=== PATIENT | female | born 1960 | race Caucasian/White ===

== ENCOUNTER → 2017-06-06 | Outpatient (CLI) | payer BC ==
[~2017-06-06] MED LIST: EST5 PO; METH1TAB12 PO
== END | disposition home or self-care (01) ==
LOC: C.PAPS 08:31
PROVIDERS: ATTEND Obstetrics & Gynecology
DX: Z01.419 Encounter for gynecological examination (general) (routine) without abnormal findings (principal)

== ENCOUNTER 2019-01-29 08:52 | Inpatient (IN) ==
[2019-01-29] MEDS ORDERED: SODIUM CHLORIDE 0.9% 1000ML 1,000 ML IV ONE (09:37)
[2019-01-29] MEDS ORDERED: ACETAMINOPHEN 1,000 MG/100 ML VIAL IV STA (09:37)
[2019-01-29] MEDS ORDERED: ONDANSETRON INJ 2 MG/ML 2 ML VIAL IV STA (09:50)
[2019-01-29 10:10] LABS: Basophils # (auto) 0.03 K/uL (0-0.2); Basophils % (auto) 0.3 %; Eosinophils # (auto) 0.03 K/uL (0-0.5); Eosinophils % (auto) 0.3 %; Hematocrit (blood only) 37.5 % (37-47); Hemoglobin 12.9 g/dL (12.0-16.0); Immature Granulocytes # (auto) 0.01 K/uL (0.00-0.02); Immature Granulocytes % (auto) 0.1 %; Lymphocytes # (auto) 1.45 K/uL (1.2-3.4); Lymphocytes % (auto) 15.8 %; Mean Corpuscular Hgb Conc 34.4 g/dL (32-36); Mean Corpuscular Volume 86.2 fL (80-100); Mean Platelet Volume 9.3 fL (7.4-10.4); Monocytes # (auto) 0.91 K/uL (0.11-0.59); Monocytes % (auto) 9.9 %; Neutrophils # (auto) 6.76 K/uL (1.4-6.5); Neutrophils % (auto) 73.6 %; Platelet Count 189 K/uL (130-400); RDW Coefficient of Variation 12.7 % (11.5-14.5); RDW Standard Deviation 40.1 fL (36.4-46.3); Red Blood Count 4.35 M/uL (4.2-5.4); White Blood Count 9.19 K/uL (4.8-10.8)
[2019-01-29 10:16] LABS: Appearance Urine Clear (Clear); Bacteria Urine Automated Negative (Negative); Bilirubin Urine Negative (Negative); Blood Urine 3+ (Negative); Color Urine Dark Yellow; Epithelial Cell Urine Auto >30 /lpf (0-5); Glucose Urine UA Negative (Negative); Ketones Urine Trace (Negative); Leukocyte Esterase Urine 1+ (Negative); Nitrite Urine Negative (Negative); Protein Urine Negative (Negative); RBC Urine Automated >30 /hpf (0-4); Specific Gravity Urine 1.014 (1.000-1.030); Urobilinogen Urine Negative (Negative)
[2019-01-29 10:24] LABS: Albumin Level 3.7 gm/dl (3.4-5.0); BUN Creatinine Ratio 25.1 (10-20); Calcium 8.8 mg/dl (8.5-10.1); Creatinine Clr Calc Pharmacy 75.5 ml/min; Est GFR (African American) 104.5; Est GFR (Non-African American) 90.1
[2019-01-29 10:27] LABS: Bilirubin,Total 0.5 mg/dl (0.2-1); Globulin 3.8 gm/dl (2.5-4.0); Total Protein 7.5 gm/dl (6.4-8.2)
[2019-01-29] MEDS ORDERED: IOVERSOL 100ml IV PRN (10:50)
--- NOTE | 2019-01-29 11:07 | CT Scan Report ---
ABDOMEN AND PELVIS CT WITH IV CONTRAST CT DOSE: 451.61 mGy.cm HISTORY: left flank pain TECHNIQUE: Multiaxial CT images of the abdomen and pelvis were performed following the use of intrave nous contrast. A dose lowering technique was utilized adhering to the principles of ALARA. COMPARISON STUDY: None. FINDINGS: Small hiatus hernia. Mild dependent changes seen within the lung bases posteriorly. The hea rt is mildly enlarged. No pneumoperitoneum. No pneumatosis. There is a right hip prosthesis. The live r, gallbladder, pancreas, and spleen are unremarkable. Normal adrenal glands. No retroperitoneal lymp hadenopathy. Normal bladder. The uterus is surgically absent. No bowel wall thickening or obstruction . Colonic diverticulosis. No evidence for diverticulitis. Normal appendix. There is a 7 mm obstructin g stone within the left ureteropelvic junction resulting in mild left hydronephrosis. There are multi ple additional bilateral renal calculi, left greater than right. Focal scarring within calcification within the upper pole of the right kidney. There is also a few bilateral renal hypodense lesions. The se favor cysts. No right-sided hydronephrosis. IMPRESSION: 1. A 7 mm obstructing stone within the left ureteropelvic junction resulting in mild left hydronephro sis. 2. Bilateral nephrolithiasis. 3. Additional findings as described above. Electronically signed by: Freddy Gibson M.D. 01/29/2019 11:06 AM
[2019-01-29] MEDS ORDERED: cefTRIAXone SODIUM 1,000 MG/50 ML BAG IV STA (11:37)
--- NOTE | 2019-01-29 13:33 | History & Physical Report ---
Date of Service January 29, 2019 Assessment & Plan (1) Ureteral obstruction: Has a 7 mm obstructing stone within the left ureteropelvic junction resulting in mild left hydronephrosis. Weight bilateral nephrolithiasis. Neurology consulted Intravenous Toradol to control pain Likely to have a stent placement this afternoon Present on Admission?: Yes (2) Hydronephrosis: As above (3) UTI (urinary tract infection): Has had fever at home of 101 F Has been on Macrobid-we will stop Started on intravenous ceftriaxone Cultures have been sent Present on Admission?: Yes (4) Hypertension: Continue current medication (5) Hypokalemia: Likely secondary to medication induced Will give 2 K rides of potassium and IV fluid with potassium DVT prophylaxis SCDs Like to be discharged tomorrow The patient wants to be discharged before as she was to attend her daughter's marriage ceremony in [place]. History of Present Illness Chief Complaint: Left flank and groin pain for the last 7 days Primary Care Provider: Jorge Villanueva DO She is a 58-year-old female with significant past medical history of hypertension, hyperlipidemia and history of nephrolithiasis apparently has been complaining of left flank groin pain for the last 7 days. She was having more frequency of urination and associated with blood at one time. She went to the urgent care last Tuesday her urine was tested and as the pain was relieved she was sent home. Noted to have a UTI then been put on nitrofurantoin since yesterday. Has had fever of 101 at home associated with nausea but no vomiting. The pain remained intermittent but did not have any more dysuria. Hemodynamically stable in the emergency room with left flank, renal angle and left groin area tender to palpate. CT of the abdomen and pelvis showed a 7 mm stone in the left pale pediatric junction with mild hydronephrosis. She was started with intravenous ceftriaxone and admitted to medical floor and Urology was consulted. Likely go to OR this afternoon. Allergies Allergy/AdvReac Type Severity Reaction Status Date / Time No Known Allergies Allergy Unknown Verified 01/29/19 09:24 Home Medications Home Medications Medication Instructions Recorded Confirmed Type aspirin 81 mg PO QAM 01/29/19 01/29/19 History atorvastatin 20 mg PO 2XWK 01/29/19 01/29/19 History biotin 0 mg PO QAM 01/29/19 01/29/19 History estradiol 1 patch TOPICAL 2XWK 01/29/19 01/29/19 History ibuprofen 800 mg PO QAM 01/29/19 01/29/19 History losartan-hydrochlorothiazide 1 tab PO QAM 01/29/19 01/29/19 History xi-id-fklf-FA-Ca carb-vit K 1 tab PO QAM 01/29/19 01/29/19 History [Women's Multivitamin] nitrofurantoin monohyd/m-cryst 100 mg PO BID 01/29/19 01/29/19 History sertraline 25 mg PO HS 01/29/19 01/29/19 History testosterone 1 pump INTRANASAL TID 01/29/19 01/29/19 History Past Med/Surg History Medical History H/O: hysterectomy Hip arthritis Hypertension Hypolipidemia Surgical History H/O section Family History Other Kidney stone Social History Preferred Language: Wolof Communication Ability: Effective Beliefs That Will Affect Care: None Current Living Situation: Significant Other current occupational status: employed Other Information That Helps Us Care for You: No Feels Safe at Home: Yes Safety Concerns: Feels Safe At This Time Smoking Status: Never smoker Hx Alcohol Use: Yes Hx Substance Use: No Review of Systems All systems reviewed & are unremarkable except as noted in HPI & below Physical Exam Vital Signs (Past 24 Hours): Last Vital Signs Temp 36.8 C 01/29/19 08:57 Pulse 68 01/29/19 12:30 Resp 15 01/29/19 12:30 BP 108/65 01/29/19 12:30 Pulse Ox 94 01/29/19 12:30 Physical Exam: Lying in bed comfortably Constitutional: WD/WN, vitals as above Eyes: PERRL, conjunctivae normal, anicteric sclerae ENMT: external ear and nose normal, oropharynx normal Neck: trachea midline, no thyromegaly Respiratory: normal respiratory effort, lungs clear to auscultation Cardiovascular: Rate/Rhythm: regular rate and regular rhythm Heart Sounds: normal S1 and normal S2 Gastrointestinal (Abdomen): Inspection/Auscultation: abdomen normal to inspection and normal bowel sounds Percussion/Palpation: + abdomen tender (Left renal angle and left groin) Musculoskeletal: No acute arthritis in any joints Neurologic: PERRL, EOMI, accommodation nl, no face palsy, no dysarthria Results & Data Laboratory Results Short CBC 01/29/19 Range/Units 09:52 WBC 9.19 (4.8-10.8) K/uL Hgb 12.9 (12.0-16.0) g/dL Hct 37.5 (37-47) % Plt Count 189 (130-400) K/uL BMP 01/29/19 09:52 Sodium 139 Potassium 3.0 L Chloride 102 Carbon Dioxide 31 BUN 18 Creatinine 0.73 Glucose 114 H Calcium 8.8 Liver Function 01/29/19 Range/Units 09:52 Total Bilirubin 0.5 (0.2-1) mg/dl AST 13 L (15-37) U/L ALT 25 (12-78) U/L Alkaline Phosphatase 73 (45-117) U/L Albumin 3.7 (3.4-5.0) gm/dl Urine 01/29/19 Range/Units 09:17 Urine Color Dark Yellow Urine Appearance Clear (Clear) Urine pH 6.0 (4.5-7.5) Ur Specific [place] 1.014 (1.000-1.030) Urine Protein Negative (Negative) Urine Glucose (UA) Negative (Negative) Diagnostic Findings CT of the Abdomen and Pelvis:1. A 7 mm obstructing stone within the left ureteropelvic junction resulting in mild left hydronephrosis. 2. Bilateral nephrolithiasis. 3. Additional findings as described above. Medications Administered Current Inpatient Medications Potassium Acetate 10 meq/ (Sodium Chloride) 105 mls @ 105 mls/hr IV Q1H LIMA Stop: 01/29/19 15:29 Ceftriaxone Sodium 1,000 mg/ (Dextrose) 50 mls @ 100 mls/hr IV Q24H LIMA; Protocol Stop: 02/08/19 13:29 Ioversol (Optiray 320 100ml) 94 ml IV ONCE PRN PRN Reason: Interaction Checking Stop: 02/02/19 10:49 Last Admin: 01/29/19 10:51 Dose: 94 ml Documented by:
--- NOTE | 2019-01-29 14:54 | Urology Consultation ---
Date of Consultation January 29, 2019 Assessment & Plan (1) Hypolipidemia: (2) Hypertension: (3) Ureterolithiasis: obstructing large left upper ureteral stone 13mm plan cstent today as she has recent + urine culture and fever last night stone removal surgery will be in 2-3 weeks once infection has been treated. will need to look for culture results from urgent care. I described cysto left stent and she signed consent to OR today at 4pm Present on Admission?: Yes (4) Ureteral obstruction: (5) UTI (urinary tract infection): History of Present Illness Reason for Consultation: I am asked by to evaluate and treat patient for left ureteral stone. She also has a febrile UTI. She had utis symptoms starting Tuesday and went to urgent care over the weekend. She has left flank pain with nausea and fevered to 102 last night with rigors. She took macrobid from the urgent care starting Tuesday01/28/19 and she is afebrile today. She last had yogurt and water at 8am,. Requesting Physician: Dr Barrientos Attending Physician: Lisandro Barrientos MD History of Present Illness I am asked by to evaluate and treat patient for left ureteral stone. She also has a febrile UTI. She had utis symptoms starting Tuesday and went to urgent care over the weekend. She has left flank pain with nausea and fevered to 102 last night with rigors. She took macrobid from the urgent care starting Tuesday01/28/19 and she is afebrile today. She last had yogurt and water at 8am, Allergies Allergy/AdvReac Type Severity Reaction Status Date / Time No Known Allergies Allergy Unknown Verified 01/29/19 09:24 Home Medications Home Medications Medication Instructions Recorded Confirmed Type aspirin 81 mg PO QAM 01/29/19 01/29/19 History atorvastatin 20 mg PO 2XWK 01/29/19 01/29/19 History biotin 0 mg PO QAM 01/29/19 01/29/19 History estradiol 1 patch TOPICAL 2XWK 01/29/19 01/29/19 History ibuprofen 800 mg PO QAM 01/29/19 01/29/19 History losartan-hydrochlorothiazide 1 tab PO QAM 01/29/19 01/29/19 History mb-kt-qtss-FA-Ca carb-vit K 1 tab PO QAM 01/29/19 01/29/19 History [Women's Multivitamin] nitrofurantoin monohyd/m-cryst 100 mg PO BID 01/29/19 01/29/19 History sertraline 25 mg PO HS 01/29/19 01/29/19 History testosterone 1 pump INTRANASAL TID 01/29/19 01/29/19 History Patient History Medical History H/O: hysterectomy Hip arthritis Hypertension Hypolipidemia Surgical History H/O section Family History Other Kidney stone Social History Preferred Language: Maori Communication Ability: Effective Beliefs That Will Affect Care: None Current Living Situation: Significant Other current occupational status: employed Other Information That Helps Us Care for You: No Feels Safe at Home: Yes Safety Concerns: Feels Safe At This Time Smoking Status: Never smoker Hx Alcohol Use: Yes Hx Substance Use: No Review of Systems Fam Hx- brother and father have had kidney stones Soc- retired, has adult nehemiah august, no tobacco, social alcohol ROS- no chest pain no shortness of breath, + fever chills and rigors last night, + nausea, no emesis today, bowels normal, no rash, no seizures, no numbness or weakness, + frequency of urination, + dysuria Physical Exam Vital Signs (Past 24 Hours): Last Vital Signs Temp 36.8 C 01/29/19 08:57 Pulse 68 01/29/19 14:00 Resp 14 01/29/19 14:00 BP 110/66 01/29/19 14:00 Pulse Ox 94 01/29/19 14:00 Constitutional: WD/WN, vitals as above + well hydrated, + thin and healthy appearing; no acute distress Respiratory: normal respiratory effort, lungs clear to auscultation Cardiovascular: RRR, no murmur, no edema Gastrointestinal (Abdomen): normal bowel sounds, soft, nontender, no hepatosplenomegaly Skin: no rashes, warm and dry Psychiatric: A+Ox3, euthymic affect
[2019-01-29] MEDS: POTASSIUM CHLORIDE / WTR 10 MEQ/100 ML PLCT IV SCH ×2 (16:06→18:56)
[2019-01-29] MEDS ORDERED: fentaNYL citrate 100 MCG/2 ML VIAL IV PRN (16:19)
[2019-01-29] MEDS ORDERED: ATROPINE SULFATE 0.1 MG/ML 10ML SYR IV PRN (16:19)
[2019-01-29] MEDS ORDERED: ONDANSETRON INJ 2 MG/ML 2 ML VIAL IV PRN (16:19)
[2019-01-29] MEDS ORDERED: ePHEDrine sulfate 50 MG/ML AMP IV PRN (16:19)
[2019-01-29] MEDS ORDERED: MIDAZOLAM HCL 1 MG/ML 2ML VIAL ONE (16:25)
[2019-01-29] MEDS ORDERED: fentaNYL citrate 100 MCG/2 ML VIAL ONE (16:25)
[2019-01-29] MEDS ORDERED: LIDOCAINE HCL 2% 2 ML VIAL/AMP(20MG/ML) INFIL ONE (16:25)
[2019-01-29] MEDS ORDERED: ONDANSETRON INJ 2 MG/ML 2 ML VIAL ONE (16:25)
[2019-01-29] MEDS ORDERED: PROPOFOL IV EMULSION 10 MG/ML 20 ML VIAL IV ONE (16:25)
--- NOTE | 2019-01-29 16:26 | Anesthesiology Consultation ---
Date of Service January 29, 2019 HTN Obstructing Stone Hypokalemia Assessment & Plan (1) Encounter for pre-operative examination: Chart Review Chart Review: Acceptable Risk for Surgery and Patient NOT seen in Pre Admission Testing Consults Requested none ASA ASA2 Proposed Anesthesia Anesthesia Type: MAC Risk / Benefits Reviewed With: PT / POA / Parent / Guardian, Accepts Plan and Informed Consent Obtained NPO Date Last Intake of Fluids: 01/29/19 Time Last Intake of Fluids: 07:30 Date Last Intake of Solids: 01/29/19 Time Last Intake of Solids: 07:30 Last Intake of Solids Comment: had yogert;toast and water History Surgery Operation Date: 01/29/19 17:45 Proposed Procedures p Cystoscopy, Left Stent Placement - Harika Espinosa MD Height/Weight Height: 5 ft 1 in Weight: 72.3 kg Allergies Allergy/AdvReac Type Severity Reaction Status Date / Time No Known Allergies Allergy Unknown Verified 01/29/19 09:24 Medications Home Medications Medication Instructions Recorded Confirmed Last Taken aspirin 81 mg PO QAM 01/29/19 01/29/19 01/29/19 atorvastatin 20 mg PO 2XWK 01/29/19 01/29/19 01/26/19 biotin 0 mg PO QAM 01/29/19 01/29/19 01/29/19 estradiol 1 patch TOPICAL 2XWK 01/29/19 01/29/19 01/25/19 ibuprofen 800 mg PO QAM 01/29/19 01/29/19 01/29/19 losartan-hydrochlorothiazide 1 tab PO QAM 01/29/19 01/29/19 01/29/19 kt-uf-amnf-FA-Ca carb-vit K 1 tab PO QAM 01/29/19 01/29/19 01/29/19 [Women's Multivitamin] nitrofurantoin monohyd/m-cryst 100 mg PO BID 01/29/19 01/29/19 01/29/19 sertraline 25 mg PO HS 01/29/19 01/29/19 01/28/19 testosterone 1 pump INTRANASAL TID 01/29/19 01/29/19 01/28/19 Active Medications Generic Name Dose Route Start Last Admin Trade Name Freq PRN Reason Stop Dose Admin Potassium Chloride 10 meq in 100 mls @ 100 mls/hr 01/29/19 15:00 01/29/19 16:06 K Vick / Wtr IV 01/29/19 16:59 100 mls/hr Q1H LIMA Administration Ioversol 94 ml 01/29/19 10:50 01/29/19 10:51 Optiray 320 100ml IV 02/02/19 10:49 94 ml ONCE PRN Administration Interaction Checking Past Medical History Medical History H/O: hysterectomy Hip arthritis Hypertension Hypolipidemia Past Family History Family History Other Kidney stone Past Surgical History Surgical History H/O section Social History Smoking Status: Never smoker Hx Alcohol Use: Yes Alcohol type: wine alcohol intake frequency: other Alcohol Intake Frequency Comment: weekends. 2 glasses of wine Hx Substance Use: No Physical Exam Vital Signs Last Vital Signs Temp 36.7 C 01/29/19 15:29 Pulse 67 01/29/19 15:29 Resp 20 01/29/19 15:29 BP 114/71 01/29/19 15:29 Pulse Ox 95 01/29/19 15:29 ENMT Mouth: no TMJ abnormality Thyromental Distance: > or= 3.5 Finger Breadths Mallampati Class: II Neck normal visual inspection Respiratory normal respiratory effort Cardiovascular Rate/Rhythm: regular rate and regular rhythm Neurologic moves all extremities Psychiatric Orientation: alert Testing Laboratory Results 01/29/19 09:52 01/29/19 09:52 Urine Color Dark Yellow 01/29/19 09:17 Urine Appearance Clear (Clear) 01/29/19 09:17 Urine pH 6.0 (4.5-7.5) 01/29/19 09:17 Ur Specific [place] 1.014 (1.000-1.030) 01/29/19 09:17 Urine Protein Negative (Negative) 01/29/19 09:17 Urine Glucose (UA) Negative (Negative) 01/29/19 09:17 Urine Ketones Trace (Negative) H 01/29/19 09:17 Urine Nitrite Negative (Negative) 01/29/19 09:17 Ur Leukocyte Esterase 1+ (Negative) H 01/29/19 09:17 Urine WBC (Auto) 10-30 /hpf (0-5) H 01/29/19 09:17 Urine RBC (Auto) >30 /hpf (0-4) H 01/29/19 09:17 U Hyaline Cast (Auto) 5-10 /lpf (0-5) H 01/29/19 09:17 U Epithel Cells (Auto) >30 /lpf (0-5) H 01/29/19 09:17 Urine Bacteria (Auto) Negative (Negative) 01/29/19 09:17
[2019-01-29] MEDS ORDERED: KETAMINE HCL INJ 50 MG/ML 10 ML VIAL ONE (16:46)
[2019-01-29] MEDS ORDERED: SODIUM CHLORIDE 0.9% INJ 10 ML VIAL ONE (16:56)
--- NOTE | 2019-01-29 17:01 | Operative Report ---
Post Operative Report Pre & Post Diagnosis Operation Date: 01/29/19 17:45 Pre-Op Diagnosis: Left Upper Ureteral Stone Post-Op Diagnosis: Left Upper Ureteral Stone Procedure Operation Date: 01/29/19 17:45 Actual Procedures p Cystoscopy, Left Ureteral Stent Placement(Not Applicable) - Harika Espinosa MD Surgeon Harika Espinsoa MD Ship Painter Helper none Estimated Blood Loss 0 Findings Consistent with Post-Op Diagnosis radio-opaque upper ureteral and renal stones Fluids 200mL Specimens none Drains 6 fr 24 centimeter double J stent Anesthesia Type MAC Complications none Disposition Accompanied Patient To Recovery: Yes Disposition: Recovery Room Indications UTI and obstructing 13mm left upper ureteral stone Description of Procedure Patient was sedated and placed in lithotomy position. Her genitals were prepped and draped in sterile fashion. Time out held with team. I placed a 21 fr rigid cystoscope to bladder. The urethra is unremarkable. There is very mild cystitis cystica changes. The UOs are nomral location slit shape. I placed a Bentson wire up left ureter and placed a 24 centimeter 6 Fr double J stent easily. There is brisk efflux after placement. I left bladder empty and concluded case. She transferred to recovery under my escort, in stable condition. Plan: To floor for observation Pyridium for dysuria prn flomax daily if needed for stent discomfort oral pain meds as needed antibiotics bassed on prior urine culture ASA 3 clean contaminated case 2 seconds fluoro ceftriaxone antibiotic noon in ER I attest to the content of the Intraoperative Record and any orders documented therein. Any exceptions are noted below.
[2019-01-29] MEDS ORDERED: POTASSIUM CHLORIDE PWD 20 MEQ PACK PO ONE (17:06)
--- NOTE | 2019-01-29 17:23 | Fluoroscopy Report ---
FL KUB CLINICAL HISTORY: LEFT CYSTO, STENT COMPARISON STUDY: None FLUOROSCOPY TIME: 3 seconds. NUMBER OF FLUOROSCOPIC IMAGES: 1 FINDINGS: A single fluoroscopic spot image from a retrograde study is provided for interpretation. Th is demonstrates the proximal portion of a left-sided nephroureteral stent. There are suspected left r enal calculi. IMPRESSION: The proximal portion of the left-sided nephroureteral stent is visualized Electronically signed by: Papi Oden M.D. 01/29/2019 5:22 PM
--- NOTE | 2019-01-29 17:37 | Anesthesiology Progress Note ---
Date of Service January 29, 2019 Anesthesia Post Procedure Vital Signs Vital Signs: Temp Pulse Pulse Pulse Resp BP BP 01/29/19 17:34 37.1 C 01/29/19 17:26 62 15 112/62 01/29/19 17:25 73 19 01/29/19 17:20 70 19 109/66 01/29/19 17:16 37.1 C 68 74 20 104/63 104/63 01/29/19 17:15 69 18 01/29/19 17:11 68 18 105/59 L 01/29/19 17:10 71 17 01/29/19 17:05 71 21 93/58 L 01/29/19 17:01 79 15 87/55 L 01/29/19 17:00 36.4 C L 75 16 87/55 L 01/29/19 15:50 37.2 C 64 18 119/67 01/29/19 15:29 36.7 C 67 20 114/71 01/29/19 14:35 01/29/19 14:25 01/29/19 14:20 01/29/19 14:15 01/29/19 14:10 01/29/19 14:05 01/29/19 14:01 01/29/19 14:00 68 14 104/68 110/66 01/29/19 13:55 01/29/19 13:50 01/29/19 13:47 110/66 01/29/19 13:46 01/29/19 12:55 66 13 01/29/19 12:50 71 18 01/29/19 12:45 65 17 01/29/19 12:40 72 10 L 01/29/19 12:35 70 14 01/29/19 12:30 68 15 108/65 01/29/19 12:01 74 15 100/65 01/29/19 12:00 68 14 01/29/19 11:56 70 15 01/29/19 11:55 73 17 97/62 L 01/29/19 11:30 68 16 01/29/19 11:00 75 15 01/29/19 10:59 72 16 117/67 01/29/19 10:57 78 17 117/67 01/29/19 10:30 66 16 01/29/19 10:12 77 16 114/71 01/29/19 10:11 78 19 01/29/19 10:08 79 15 114/61 01/29/19 08:57 36.8 C 96 H 16 104/68 Pulse Ox 01/29/19 17:34 01/29/19 17:26 98 01/29/19 17:25 100 01/29/19 17:20 99 01/29/19 17:16 99 01/29/19 17:15 98 01/29/19 17:11 100 01/29/19 17:10 100 01/29/19 17:05 99 01/29/19 17:01 96 01/29/19 17:00 96 01/29/19 15:50 96 01/29/19 15:29 95 01/29/19 14:35 95 01/29/19 14:25 95 01/29/19 14:20 94 01/29/19 14:15 95 01/29/19 14:10 98 01/29/19 14:05 94 01/29/19 14:01 93 01/29/19 14:00 94 01/29/19 13:55 96 01/29/19 13:50 94 01/29/19 13:47 93 01/29/19 13:46 94 01/29/19 12:55 96 01/29/19 12:50 92 01/29/19 12:45 96 01/29/19 12:40 95 01/29/19 12:35 96 01/29/19 12:30 94 01/29/19 12:01 95 01/29/19 12:00 93 01/29/19 11:56 91 01/29/19 11:55 92 01/29/19 11:30 90 01/29/19 11:00 92 01/29/19 10:59 96 01/29/19 10:57 95 01/29/19 10:30 01/29/19 10:12 92 01/29/19 10:11 01/29/19 10:08 01/29/19 08:57 97 Pain Intensity Left Flank: Pain Intensity: 0 Notes Mental Status: alert / awake / arousable Patient Amnestic to Procedure: Yes Nausea / Vomiting: adequately controlled Pain: adequately controlled Airway Patency, RR, SpO2: stable & adequate BP & HR: stable & adequate Hydration State: stable & adequate Anesthetic Complications: no major complications apparent
--- NOTE | 2019-01-29 19:42 | Emergency Department Note ---
Entered by Lissa Valladares acting as a scribe for History of Present Illness General Chief complaint: Flank Pain Stated complaint: flank pain, high fever, passed blood, lower back Time Seen by Provider: 01/29/19 09:36 Source: patient Mode of arrival: ambulatory Limitations: no limitations History of Present Illness Onset (ago): day(s) 4 Location: abdomen (left sided flank pain) and genitals Severity: severe Pain Consistency: + intermittent Maximum Pain Intensity: 3 Current Pain Intensity: 3 Quality: + other Associated symptoms: + fever/chills, + nausea/vomiting (The patient complains of nausea. ) and + other (The patient complains of lower back pain, fatigue, groin pain, hematuria. ) The patient is a 58 year old female with a history of hip arthritis, C-sections, and a hysterectomy who presents to the ED with complaints of intermittent severe left sided flank pain that onset 4 days ago. She states that her pain is currently a 3/10 in severity. She notes that 4 days ago, she experienced a large amount of hematuria and then felt better. She states she went to urgent care and they told her that she "probably passed a stone." The patient notes that she received a call that there were bacteria in her urine and was prescribed an antibiotic. The patent states that her symptoms returned last night with a fever and severe flank pain. She notes that she feels better this morning but still has groin pain. The patient complains of fever, lower back pain, fatigue, nausea, groin pain, and hematuria. She notes that she has a family history of kidney stones. Home Medications Home Medications Medication Instructions Recorded Confirmed Type aspirin 81 mg PO QAM 01/29/19 01/29/19 History atorvastatin 20 mg PO 2XWK 01/29/19 01/29/19 History biotin 0 mg PO QAM 01/29/19 01/29/19 History estradiol 1 patch TOPICAL 2XWK 01/29/19 01/29/19 History ibuprofen 800 mg PO QAM 01/29/19 01/29/19 History losartan-hydrochlorothiazide 1 tab PO QAM 01/29/19 01/29/19 History gq-kt-gpnt-FA-Ca carb-vit K 1 tab PO QAM 01/29/19 01/29/19 History [Women's Multivitamin] nitrofurantoin monohyd/m-cryst 100 mg PO BID 01/29/19 01/29/19 History sertraline 25 mg PO HS 01/29/19 01/29/19 History testosterone 1 pump INTRANASAL TID 01/29/19 01/29/19 History Allergies Allergy/AdvReac Type Severity Reaction Status Date / Time No Known Allergies Allergy Unknown Verified 01/29/19 09:24 Past Med/Surg History Medical History H/O: hysterectomy Hip arthritis Hypertension Hypolipidemia Surgical History H/O section Family History Other Kidney stone Social History Preferred Language: Bahamian Communication Ability: Effective Beliefs That Will Affect Care: None Current Living Situation: Significant Other current occupational status: employed Other Information That Helps Us Care for You: No Feels Safe at Home: Yes Safety Concerns: Feels Safe At This Time Smoking Status: Never smoker Hx Alcohol Use: Yes Hx Substance Use: No Review of Systems See HPI for pertinent positives & negatives. and A total of 10 systems reviewed and were otherwise negative Physical Exam Vital Signs Vital Signs - 24 hr 01/29/19 15:29 01/29/19 15:50 01/29/19 17:00 Temperature 36.7 C 37.2 C 36.4 C L Temperature Source Oral Oral Temporal Artery Scan Pulse Rate Pulse Rate [Apical] 75 Pulse Rate [Left Finger] Pulse Rate [Right Finger] 67 64 Pulse Rate from SpO2 Sensor 76 Pulse Rhythm [Apical] Regular Pulse Rhythm [Right Finger] Regular Regular Pulse Strength [Apical] Pulse Strength [Right Finger] Normal Normal Respiratory Rate 20 18 16 Respiratory Effort / Characteristics Non-Labored Spontaneous Non-Labored Non-Labored Spontaneous Respiratory Depth Normal Normal Normal Respiratory Pattern Regular Regular Regular Blood Pressure Blood Pressure [Left Arm] 114/71 119/67 87/55 L Blood Pressure Mean Blood Pressure Mean [Left Arm] 85 84 65 Blood Pressure Position [Left Arm] Lying Lying Lying Pulse Oximetry 95 96 96 Oxygen Delivery Method Room Air Room Air Oxymask Oxygen Flow Rate 10 01/29/19 17:01 01/29/19 17:05 01/29/19 17:10 Temperature Temperature Source Pulse Rate 79 71 71 Pulse Rate [Apical] Pulse Rate [Left Finger] Pulse Rate [Right Finger] Pulse Rate from SpO2 Sensor 77 71 73 Pulse Rhythm [Apical] Pulse Rhythm [Right Finger] Pulse Strength [Apical] Pulse Strength [Right Finger] Respiratory Rate 15 21 17 Respiratory Effort / Characteristics Respiratory Depth Respiratory Pattern Blood Pressure 87/55 L 93/58 L Blood Pressure [Left Arm] Blood Pressure Mean 65 69 Blood Pressure Mean [Left Arm] Blood Pressure Position [Left Arm] Pulse Oximetry 96 99 100 Oxygen Delivery Method Oxygen Flow Rate 01/29/19 17:11 01/29/19 17:15 01/29/19 17:16 Temperature 37.1 C Temperature Source Temporal Artery Scan Pulse Rate 68 69 68 Pulse Rate [Apical] 74 Pulse Rate [Left Finger] Pulse Rate [Right Finger] Pulse Rate from SpO2 Sensor 68 69 68 Pulse Rhythm [Apical] Regular Pulse Rhythm [Right Finger] Pulse Strength [Apical] Normal Pulse Strength [Right Finger] Respiratory Rate 18 18 20 Respiratory Effort / Characteristics Non-Labored Spontaneous Respiratory Depth Normal Respiratory Pattern Regular Blood Pressure 105/59 L 104/63 Blood Pressure [Left Arm] 104/63 Blood Pressure Mean 74 76 Blood Pressure Mean [Left Arm] 76 Blood Pressure Position [Left Arm] Lying Pulse Oximetry 100 98 99 Oxygen Delivery Method Nasal Cannula Oxygen Flow Rate 2 01/29/19 17:20 01/29/19 17:25 01/29/19 17:26 Temperature Temperature Source Pulse Rate 70 73 62 Pulse Rate [Apical] Pulse Rate [Left Finger] Pulse Rate [Right Finger] Pulse Rate from SpO2 Sensor 71 73 63 Pulse Rhythm [Apical] Pulse Rhythm [Right Finger] Pulse Strength [Apical] Pulse Strength [Right Finger] Respiratory Rate 19 19 15 Respiratory Effort / Characteristics Respiratory Depth Respiratory Pattern Blood Pressure 109/66 112/62 Blood Pressure [Left Arm] Blood Pressure Mean 80 78 Blood Pressure Mean [Left Arm] Blood Pressure Position [Left Arm] Pulse Oximetry 99 100 98 Oxygen Delivery Method Oxygen Flow Rate 01/29/19 17:34 01/29/19 17:50 01/29/19 18:20 Temperature 37.1 C 36.9 C 36.8 C Temperature Source Temporal Artery Scan Oral Oral Pulse Rate Pulse Rate [Apical] Pulse Rate [Left Finger] Pulse Rate [Right Finger] 67 73 Pulse Rate from SpO2 Sensor Pulse Rhythm [Apical] Pulse Rhythm [Right Finger] Regular Pulse Strength [Apical] Pulse Strength [Right Finger] Normal Respiratory Rate 16 17 Respiratory Effort / Characteristics Non-Labored Respiratory Depth Normal Normal Respiratory Pattern Regular Blood Pressure Blood Pressure [Left Arm] 119/71 128/82 Blood Pressure Mean Blood Pressure Mean [Left Arm] 87 97 Blood Pressure Position [Left Arm] Lying Lying Pulse Oximetry 97 94 Oxygen Delivery Method Nasal Cannula Room Air Oxygen Flow Rate 01/29/19 19:06 01/29/19 19:50 01/29/19 21:02 Temperature 36.8 C 36.8 C 37.1 C Temperature Source Oral Oral Oral Pulse Rate Pulse Rate [Apical] Pulse Rate [Left Finger] Pulse Rate [Right Finger] 88 88 76 Pulse Rate from SpO2 Sensor Pulse Rhythm [Apical] Pulse Rhythm [Right Finger] Regular Regular Regular Pulse Strength [Apical] Pulse Strength [Right Finger] Normal Normal Normal Respiratory Rate 18 18 16 Respiratory Effort / Characteristics Non-Labored Spontaneous Non-Labored Spontaneous Non-Labored Spontaneous Respiratory Depth Normal Normal Normal Respiratory Pattern Regular Regular Regular Blood Pressure Blood Pressure [Left Arm] 115/61 115/61 101/66 Blood Pressure Mean Blood Pressure Mean [Left Arm] 79 79 77 Blood Pressure Position [Left Arm] Lying Lying Lying Pulse Oximetry 94 94 94 Oxygen Delivery Method Room Air Room Air Room Air Oxygen Flow Rate 01/29/19 23:07 01/30/19 03:43 01/30/19 06:59 Temperature 37.0 C 37.0 C 36.4 C L Temperature Source Oral Oral Oral Pulse Rate Pulse Rate [Apical] Pulse Rate [Left Finger] 65 61 67 Pulse Rate [Right Finger] Pulse Rate from SpO2 Sensor Pulse Rhythm [Apical] Pulse Rhythm [Right Finger] Pulse Strength [Apical] Pulse Strength [Right Finger] Respiratory Rate 14 14 19 Respiratory Effort / Characteristics Respiratory Depth Respiratory Pattern Blood Pressure Blood Pressure [Left Arm] 94/59 L 144/93 H 102/65 Blood Pressure Mean Blood Pressure Mean [Left Arm] 70 110 77 Blood Pressure Position [Left Arm] Lying Lying Lying Pulse Oximetry 93 97 93 Oxygen Delivery Method Room Air Room Air Room Air Oxygen Flow Rate GENERAL: Awake, alert, well-appearing, in no distress HENT: Normocephalic, atraumatic. Oropharynx with dry mucous membranes and otherwise unremarkable. EYES: Normal conjunctiva. Sclera non-icteric. NECK: Supple. No nuchal rigidity. FROM. No JVD. RESPIRATORY: Clear to auscultation. CARDIAC: Regular rate, normal rhythm. Extremities warm and well perfused. Pulses equal. ABDOMEN: Soft, non-distended. No tenderness to palpation. No rebound or gu arding. No masses. RECTAL: Deferred. MUSCULOSKELETAL: Chest examination reveals no tenderness. The back is symmetrical on inspection without obvious abnormality. There is no CVA tenderness to palpation. No joint edema. LOWER EXTREMITIES: Calves are equal size bilaterally and non-tender. No edema. No discoloration. NEURO: Normal sensorium. No sensory or motor deficits noted. SKIN: No rash or jaundice noted. Course 0945: Past medical records reviewed. The patient was evaluated in room C12B, and a complete history and physical examination were performed. 1248: I reviewed the patient's case with Dr. Parth Hickman. He will evaluate the patient for further management. 1258: I reviewed the patient's case with Dr. Chawla Urologyenifer. She is aware of the patient. Consultations Consultation #1: [id number]: I reviewed the patient's case with Dr. Parth Hickman. He will evaluate the patient for further management. Time: 12:48 Consultation #2: [id number]: I reviewed the patient's case with Dr. Cammy Puga. She is aware of the patient. Time: 12:58 Administered Medications Ceftriaxone Sodium 1,000 mg/ (Dextrose) 50 mls @ 100 mls/hr IV Q24H LIMA; Protocol Stop: 02/08/19 11:59 Last Infusion: 01/30/19 12:23 Dose: 0 mls/hr Documented by: [id number] Admin: 01/30/19 11:51 Dose: 100 mls/hr Documented by: [id number] Ketorolac Tromethamine (Toradol) 15 mg IV Q6H PRN PRN Reason: Pain Stop: 02/03/19 13:44 Last Admin: 01/30/19 03:56 Dose: 15 mg Documented by: [id number] Admin: 01/29/19 20:16 Dose: 15 mg Documented by: [id number] Potassium Chloride (Klor-Con Pwd) 20 meq PO BID LIMA Stop: 02/28/19 20:59 Last Admin: 01/30/19 08:42 Dose: 20 meq Documented by: [id number] Admin: 01/29/19 20:19 Dose: 20 meq Documented by: [id number] Discontinued Medications Hydromorphone HCl (Dilaudid) 0.5 mg IV NOW STA Stop: 01/30/19 06:29 Last Admin: 01/30/19 06:34 Dose: 0.5 mg Documented by: [id number] Acetaminophen (Ofirmev) 1,000 mg in 100 mls @ 400 mls/hr IV NOW STA Stop: 01/29/19 09:51 Last Infusion: 01/29/19 10:20 Dose: 0 mls/hr Documented by: [id number] Admin: 01/29/19 10:05 Dose: 400 mls/hr Documented by: [id number] Sodium Chloride (Nss 1000ml) 1,000 mls @ 999 mls/hr IV .Q1H1M ONE Stop: 01/29/19 10:37 Last Infusion: 01/29/19 11:27 Dose: 0 mls/hr Documented by: [id number] Admin: 01/29/19 10:05 Dose: 999 mls/hr Documented by: [id number] Ceftriaxone Sodium (Rocephin) 1,000 mg in 50 mls @ 100 mls/hr IV NOW STA Stop: 01/29/19 12:06 Last Infusion: 01/29/19 12:37 Dose: 0 mls/hr Documented by: [id number] Admin: 01/29/19 12:04 Dose: 100 mls/hr Documented by: [id number] Potassium Chloride (K Vick / Wtr) 10 meq in 100 mls @ 100 mls/hr IV Q1H LIMA Stop: 01/29/19 16:59 Last Infusion: 01/29/19 20:19 Dose: 0 mls/hr Documented by: [id number] Admin: 01/29/19 18:56 Dose: 100 mls/hr Documented by: [id number] Infusion: 01/29/19 17:06 Dose: 100 mls/hr Documented by: [id number] Admin: 01/29/19 16:06 Dose: 100 mls/hr Documented by: [id number] Ioversol (Optiray 320 100ml) 94 ml IV ONCE PRN PRN Reason: Interaction Checking Stop: 02/02/19 10:49 Last Admin: 01/29/19 10:51 Dose: 94 ml Documented by: [id number] Ondansetron HCl (Zofran) 4 mg IV NOW STA Stop: 01/29/19 09:51 Last Admin: 01/29/19 10:05 Dose: 4 mg Documented by: [id number] Potassium Chloride (Klor-Con Pwd) 20 meq PO NOW ONE Stop: 01/29/19 17:07 Last Admin: 01/29/19 18:57 Dose: 20 meq Documented by: [id number] Medical Decision Making Differential Diagnosis Differential diagnosis: Etiologies such as renal colic, appendicitis, diverticulitis, mesenteric ischemia, aortic pathology, infections, inflammatory bowel disease, PUD, biliary pathology, UTI, as well as others were entertained. Medical Records Attestation: I reviewed the patient's medical records. Home Medications Current Medication List: was personally reviewed by me Laboratory Data Attestation: I reviewed the patient's lab results. Result diagrams: 01/29/19 09:52 01/30/19 14:09 Lab Results 01/29/19 01/29/19 01/29/19 Range/Units 09:17 09:52 09:52 WBC 9.19 (4.8-10.8) K/uL RBC 4.35 (4.2-5.4) M/uL Hgb 12.9 (12.0-16.0) g/dL Hct 37.5 (37-47) % MCV 86.2 (80-100) fL MCH 29.7 (25-34) pg MCHC 34.4 (32-36) g/dL RDW Std Deviation 40.1 (36.4-46.3) fL RDW Coeff of Sarah 12.7 (11.5-14.5) % Plt Count 189 (130-400) K/uL MPV 9.3 (7.4-10.4) fL Immature Gran % (Auto) 0.1 % Neut % (Auto) 73.6 % Lymph % (Auto) 15.8 % Glynn % (Auto) 9.9 % Eos % (Auto) 0.3 % Baso % (Auto) 0.3 % Immature Gran # (Auto) 0.01 (0.00-0.02) K/uL Neut # (Auto) 6.76 H (1.4-6.5) K/uL Lymph # (Auto) 1.45 (1.2-3.4) K/uL Glynn # (Auto) 0.91 H (0.11-0.59) K/uL Eos # (Auto) 0.03 (0-0.5) K/uL Baso # (Auto) 0.03 (0-0.2) K/uL Sodium 139 (136-145) mmol/L Potassium 3.0 L (3.5-5.1) mmol/L Chloride 102 (98-107) mmol/L Carbon Dioxide 31 (21-32) mmol/L Anion Gap 6.0 (3-11) BUN 18 (7-18) mg/dl Creatinine 0.73 (0.6-1.2) mg/dl Est Cr Clr Drug Dosing 75.5 ml/min Est GFR ( Amer) 104.5 Est GFR (Non-Af Amer) 90.1 BUN/Creatinine Ratio 25.1 H (10-20) Glucose 114 H (70-99) mg/dl Calcium 8.8 (8.5-10.1) mg/dl Total Bilirubin 0.5 (0.2-1) mg/dl AST 13 L (15-37) U/L ALT 25 (12-78) U/L Alkaline Phosphatase 73 (45-117) U/L Total Protein 7.5 (6.4-8.2) gm/dl Albumin 3.7 (3.4-5.0) gm/dl Globulin 3.8 (2.5-4.0) gm/dl Albumin/Globulin Ratio 1.0 (0.9-2) Lipase 153 (73-393) U/L Urine Color Dark Yellow Urine Appearance Clear (Clear) Urine pH 6.0 (4.5-7.5) Ur Specific Conifer 1.014 (1.000-1.030) Urine Protein Negative (Negative) Urine Glucose (UA) Negative (Negative) Urine Ketones Trace H (Negative) Urine Blood 3+ H (Negative) Urine Nitrite Negative (Negative) Urine Bilirubin Negative (Negative) Urine Urobilinogen Negative (Negative) Ur Leukocyte Esterase 1+ H (Negative) Urine WBC (Auto) 10-30 H (0-5) /hpf Urine RBC (Auto) >30 H (0-4) /hpf U Hyaline Cast (Auto) 5-10 H (0-5) /lpf U Epithel Cells (Auto) >30 H (0-5) /lpf Urine Bacteria (Auto) Negative (Negative) 01/30/19 Range/Units 14:09 WBC (4.8-10.8) K/uL RBC (4.2-5.4) M/uL Hgb (12.0-16.0) g/dL Hct (37-47) % MCV (80-100) fL MCH (25-34) pg MCHC (32-36) g/dL RDW Std Deviation (36.4-46.3) fL RDW Coeff of Sarah (11.5-14.5) % Plt Count (130-400) K/uL MPV (7.4-10.4) fL Immature Gran % (Auto) % Neut % (Auto) % Lymph % (Auto) % Glynn % (Auto) % Eos % (Auto) % Baso % (Auto) % Immature Gran # (Auto) (0.00-0.02) K/uL Neut # (Auto) (1.4-6.5) K/uL Lymph # (Auto) (1.2-3.4) K/uL Glynn # (Auto) (0.11-0.59) K/uL Eos # (Auto) (0-0.5) K/uL Baso # (Auto) (0-0.2) K/uL Sodium 139 (136-145) mmol/L Potassium 3.8 D (3.5-5.1) mmol/L Chloride 105 (98-107) mmol/L Carbon Dioxide 31 (21-32) mmol/L Anion Gap 4.0 (3-11) BUN 14 (7-18) mg/dl Creatinine 0.71 (0.6-1.2) mg/dl Est Cr Clr Drug Dosing 77.6 ml/min Est GFR ( Amer) 108.1 Est GFR (Non-Af Amer) 93.2 BUN/Creatinine Ratio 20.3 H (10-20) Glucose 112 H (70-99) mg/dl Calcium 8.5 (8.5-10.1) mg/dl Total Bilirubin (0.2-1) mg/dl AST (15-37) U/L ALT (12-78) U/L Alkaline Phosphatase (45-117) U/L Total Protein (6.4-8.2) gm/dl Albumin (3.4-5.0) gm/dl Globulin (2.5-4.0) gm/dl Albumin/Globulin Ratio (0.9-2) Lipase (73-393) U/L Urine Color Urine Appearance (Clear) Urine pH (4.5-7.5) Ur Specific Conifer (1.000-1.030) Urine Protein (Negative) Urine Glucose (UA) (Negative) Urine Ketones (Negative) Urine Blood (Negative) Urine Nitrite (Negative) Urine Bilirubin (Negative) Urine Urobilinogen (Negative) Ur Leukocyte Esterase (Negative) Urine WBC (Auto) (0-5) /hpf Urine RBC (Auto) (0-4) /hpf U Hyaline Cast (Auto) (0-5) /lpf U Epithel Cells (Auto) (0-5) /lpf Urine Bacteria (Auto) (Negative) Imaging Data Radiologist's Impression: Radiology results as stated below per my review and the radiologist's interpretation: ABDOMEN AND PELVIS CT WITH IV CONTRAST CT DOSE: 451.61 mGy.cm HISTORY: left flank pain TECHNIQUE: Multiaxial CT images of the abdomen and pelvis were performed following the use of intravenous contrast. A dose lowering technique was utilized adhering to the principles of ALARA. COMPARISON STUDY: None. FINDINGS: Small hiatus hernia. Mild dependent changes seen within the lung bases posteriorly. The heart is mildly enlarged. No pneumoperitoneum. No pneumatosis. There is a right hip prosthesis. The liver, gallbladder, pancreas, and spleen ar e unremarkable. Normal adrenal glands. No retroperitoneal lymphadenopathy. Normal bladder. The uterus is surgically absent. No bowel wall thickening or obstruction. Colonic diverticulosis. No evidence for diverticulitis. Normal appendix. There is a 7 mm obstructing stone within the left ureteropelvic junction resulting in mild left hydronephrosis. There are multiple additional bilateral renal calculi, left greater than right. Focal scarring within calcification within the upper pole of the right kidney. There is also a few bilateral renal hypodense lesions. These favor cysts. No right-sided hy dronephrosis. IMPRESSION: 1. A 7 mm obstructing stone within the left ureteropelvic junction resulting in mild left hydronephrosis. 2. Bilateral nephrolithiasis. 3. Additional findings as described above. Electronically signed by: Freddy Gibson M.D. 01/29/2019 11:06 AM Dictated: 01/29/19 1058 Transcribed: 01/29/19 1058 Blood Pressure Blood Pressure Findings: Normal blood pressure MDM Narrative The patient is a pleasant 58-year-old woman who presents emergency department with left flank pain that began on Tuesday which subsequently improved but then recurred last night with associated fevers and chills in the setting of being seen in urgent care on Tuesday with urine culture that grew bacteria she was subsequently given prescription for Macrobid which she started last night upon o nset of her fevers per hpi. On arrival the patient is in no acute distress, afebrile stable vital signs. WBC, H/H, platelets wnl. Chemistry without acidosis. LFTs unremarkable. UA with Blood 3+, LE 1+, WBC 10-30, RBC> 30, epithelial cells> 30. CT subsequently demonstrating 7 mm obstructing stone within the left ureteropelvic junction resulting in mild left hydronephrosis. Given the patient's objective fevers last night in the setting of report of urgent care urine culture growing bacteria as well as the patient's improvement with Macrobid, UA is suspicious for infected kidney stone. Patient was given IV dose of ceftriaxone. Given signs of infection the setting of a 7 mm stone which has low likelihood of spontaneous passage in the setting of the patient's fevers and chills last night, reasonable to admit the patient for further management. Patient is agreeable with this. Thus, case was discussed with Dr. Alba, [facility] hospitalist, who evaluate the patient for admission. Case additionally discussed with Dr. Espinosa, [facility] urology, who will evaluate the patient for likely stent. Impression & Plan Hydronephrosis due to obstruction of ureter, Ureterolithiasis, UTI (urinary tract infection) Discharge Plan Visit Data *Final* Discharge Date/Time: 01/29/19 14:11 Chief Complaint: Flank Pain Stated Complaint: flank pain, high fever, passed blood, lower back ED Provider: Waldemar Canas Discharge Problem: Hydronephrosis due to obstruction of ureter, Ureterolithiasis, UTI (urinary tract infection) Patient Disposition: Admitted As Inpatient Discharge Instructions Interventions: ED Discharge Assessment Last Done: 01/29/19 14:11 The scribe's documentation has been prepared under my direction and personally reviewed by me in its entirety. I confirm that the note above accurately reflects all work, treatment, procedures, and medical decision making performed by me.
[2019-01-29] MEDS: KETOROLAC TROMETHAMINE 15 MG/ML VIAL IV PRN (20:16)
[2019-01-29] MEDS: POTASSIUM CHLORIDE PWD 20 MEQ PACK PO SCH (20:19)
[2019-01-30] MEDS: KETOROLAC TROMETHAMINE 15 MG/ML VIAL IV PRN (03:56)
[2019-01-30] MEDS ORDERED: HYDROmorphone INJ 0.5 MG/0.5 ML SYR IV STA (06:28)
[2019-01-30] MEDS ORDERED: TRAMADOL HCL 50 MG TABLET PO PRN (08:38)
[2019-01-30] MEDS: POTASSIUM CHLORIDE PWD 20 MEQ PACK PO SCH (08:42)
[2019-01-30] MEDS ORDERED: LOSARTAN/HCTZ 50/12.5MG TAB PO SCH (09:00)
[2019-01-30] MEDS ORDERED: cefTRIAXone SODIUM 1,000 MG in DEXTROSE 5% 50 ML IV SCH (12:00)
[2019-01-30 14:42] LABS: BUN Creatinine Ratio 20.3 (10-20); Calcium 8.5 mg/dl (8.5-10.1); Creatinine Clr Calc Pharmacy 77.6 ml/min; Est GFR (African American) 108.1; Est GFR (Non-African American) 93.2; Potassium 3.8 mmol/L (3.5-5.1)
[2019-01-30 15:17] VITALS: BP 110/71; TEMP 98.6; O2SAT 96
--- NOTE | 2019-01-30 15:40 | Hospitalist Progress Note ---
Date of Service January 30, 2019 Assessment & Plan (1) Ureteral obstruction: Has a 7 mm obstructing stone within the left ureteropelvic junction resulting in mild left hydronephrosis placed on empiric Ceftriaxone IV Urine culture: negative last Urine culture from [facility]: Staph saprophyticus s/p Stent Placement by Dr. Espinosa discussed with Dr. Espinosa, further antibiotics not recommended at this time will ff up with Dr. Espinosa February for Stent Removal (2) Hydronephrosis: As above (3) UTI (urinary tract infection): ruled out management per #1 (4) Hypertension: Continue current medication (5) Hypokalemia: replaced DC home ff up with PCP ganesh [id number] Dr. Hammonds ff up with Dr. Espinosa February Subjective ff up for L UPJ stone seen resting in bed, comfortable in good spirits states she feels much better overall denies flank pain, abdominal pain, dysuria does have some hematuria no fever/chills denies nausea no chest pain, dyspnea, palpitations no other symptoms states she is ready and would like to be discharged today Physical Exam Vital Signs (Past 24 Hours): Last Vital Signs Temp 37 C 01/30/19 15:16 Pulse 78 01/30/19 15:16 Resp 16 01/30/19 15:16 BP 110/71 01/30/19 15:16 Pulse Ox 96 01/30/19 15:16 Physical Exam: General- oriented x 3, not in distress, speaks in sentences with no effort or accessory muscle use Eyes- anicteric Neck- no JVD Lungs- clear breath sounds bilaterally, no rales/wheezes Heart- normal rate, regular rhythm; no murmurs Abdomen- normal bowel sounds, nondistended, soft, nontender no CVA tenderness Extremities- no pretibial edema, no calf tenderness Neuro- alert, oriented x 3; no gross focal neurologic deficits Skin- warm & dry Results & Data Laboratory Results Laboratory Results - last 24 hr 01/30/19 14:09 Sodium 139 Potassium 3.8 D Chloride 105 Carbon Dioxide 31 Anion Gap 4.0 BUN 14 Creatinine 0.71 Est Cr Clr Drug Dosing 77.6 Est GFR ( Amer) 108.1 Est GFR (Non-Af Amer) 93.2 BUN/Creatinine Ratio 20.3 H Glucose 112 H Calcium 8.5 (1) UTI (urinary tract infection) Hematuria presence: with hematuria Urinary tract infection type: acute cystitis Qualified Code(s): N30.01 - Acute cystitis with hematuria
[2019-01-30 15:41] VITALS: PULSE 76
--- NOTE | 2019-01-30 15:58 | Discharge Summary ---
Date of Service January 30, 2019 Admission HPI Per Admitting Provider She is a 58-year-old female with significant past medical history of hypertension, hyperlipidemia and history of nephrolithiasis apparently has been complaining of left flank groin pain for the last 7 days. She was having more frequency of urination and associated with blood at one time. She went to the urgent care last Tuesday her urine was tested and as the pain was relieved she was sent home. Noted to have a UTI then been put on nitrofurantoin since yesterday. Has had fever of 101 at home associated with nausea but no vomiting. The pain remained intermittent but did not have any more dysuria. Hemodynamically stable in the emergency room with left flank, renal angle and left groin area tender to palpate. CT of the abdomen and pelvis showed a 7 mm stone in the left pale pediatric junction with mild hydronephrosis. She was started with intravenous ceftriaxone and admitted to medical floor and Urology was consulted. Likely go to OR this afternoon. Admission Exam Per Admitting Provider Vital Signs (Past 24 Hours): Last Vital Signs Temp 36.8 C 01/29/19 08:57 Pulse 68 01/29/19 12:30 Resp 15 01/29/19 12:30 BP 108/65 01/29/19 12:30 Pulse Ox 94 01/29/19 12:30 Physical Exam: Lying in bed comfortably Constitutional: WD/WN, vitals as above Eyes: PERRL, conjunctivae normal, anicteric sclerae ENMT: external ear and nose normal, oropharynx normal Neck: trachea midline, no thyromegaly Respiratory: normal respiratory effort, lungs clear to auscultation Cardiovascular: Rate/Rhythm: regular rate and regular rhythm Heart Sounds: normal S1 and normal S2 Gastrointestinal (Abdomen): Inspection/Auscultation: abdomen normal to inspection and normal bowel sounds Percussion/Palpation: + abdomen tender (Left renal angle and left groin) Musculoskeletal: No acute arthritis in any joints Neurologic: PERRL, EOMI, accommodation nl, no face palsy, no dysarthria Principal Diagnosis LEFT URETERAL STONE, S/P STENT PLACEMENT Discharge Exam Vital Signs (Past 24 Hours): Last Vital Signs Temp 37 C 01/30/19 15:16 Pulse 78 01/30/19 15:16 Resp 16 01/30/19 15:16 BP 110/71 01/30/19 15:16 Pulse Ox 96 01/30/19 15:16 Physical Exam: General- oriented x 3, not in distress, speaks in sentences with no effort or accessory muscle use Eyes- anicteric Neck- no JVD Lungs- clear breath sounds bilaterally, no rales/wheezes Heart- normal rate, regular rhythm; no murmurs Abdomen- normal bowel sounds, nondistended, soft, nontender no CVA tenderness Extremities- no pretibial edema, no calf tenderness Neuro- alert, oriented x 3; no gross focal neurologic deficits Skin- warm & dry Discharge Data Allergies Allergy/AdvReac Type Severity Reaction Status Date / Time No Known Allergies Allergy Unknown Verified 01/29/19 09:24 Consultations 01/29/19 12:51 ED Decision to Admit Stat 01/29/19 13:31 Consult Urology Routine Procedures Performed Operation Date: 01/29/19 17:45 Actual Procedures p Cystoscopy, Left Ureteral Stent Placement(Not Applicable) - Harika Chadwick MD Ordered Studies 01/29/19 FL KUB Routine FL fluoroscopy <1hr Routine 01/29/19 09:46 CT abd pelvis IV con only Stat ABDOMEN AND PELVIS CT WITH IV CONTRAST CT DOSE: 451.61 mGy.cm HISTORY: left flank pain TECHNIQUE: Multiaxial CT images of the abdomen and pelvis were performed following the use of intravenous contrast. A dose lowering technique was utilized adhering to the principles of ALARA. COMPARISON STUDY: None. FINDINGS: Small hiatus hernia. Mild dependent changes seen within the lung bases posteriorly. The heart is mildly enlarged. No pneumoperitoneum. No pneumatosis. There is a right hip prosthesis. The liver, gallbladder, pancreas, and spleen are unremarkable. Normal adrenal glands. No retroperitoneal lymphadenopathy. Normal bladder. The uterus is surgically absent. No bowel wall thickening or obstruction. Colonic diverticulosis. No evidence for diverticulitis. Normal appendix. There is a 7 mm obstructing stone within the left ureteropelvic junction resulting in mild left hydronephrosis. There are multiple additional bilateral renal calculi, left greater than right. Focal scarring within calcification within the upper pole of the right kidney. There is also a few bilateral renal hypodense lesions. These favor cysts. No right-sided hydronephrosis. IMPRESSION: 1. A 7 mm obstructing stone within the left ureteropelvic junction resulting in mild left hydronephrosis. 2. Bilateral nephrolithiasis. 3. Additional findings as described above. Hospital Course (1) Ureteral obstruction: Has a 7 mm obstructing stone within the left ureteropelvic junction resulting in mild left hydronephrosis placed on empiric Ceftriaxone IV Urine culture: negative last Urine culture from [facility]: Staph saprophyticus s/p Stent Placement by Dr. Chadwick discussed with Dr. Chadwick, further antibiotics not recommended at this time will ff up with Dr. Chadwick February for Stent Removal (2) Hydronephrosis: As above (3) UTI (urinary tract infection): ruled out management per #1 (4) Hypertension: Continue current medication (5) Hypokalemia: replaced DC home ff up with PCP ganesh [id number] Dr. Hammonds ff up with Dr. Chadwick February Total Time Total Time Spent Total Time Spent (In Minutes): 30 MINUTES Discharge Plan Discharge Items Patient Disposition: Home - Self-Care Reason For Visit: LT URETERIC STONE Discharge Diagnosis: LEFT URETER STONE Discharge Goals: Diagnostic testing and Therapeutic intervention Activity: Resume your previous activity Lifting: Wait until after follow-up appointment Exercise/Sports: Wait until after follow-up appointment Driving/Machine Use Comment: NO DRIVING WHILE TAKING TRAMADOL, OR IF WITH SEVERE PAIN Non-emergency contact: Primary Care Provider and Urologist Call non-emergency contact if: you have any medication questions, your symptoms worsen, your pain is not controlled, your pain is worsening, your pain is unusual for you, your pain is concerning for you and you have a fever Follow-up/Referrals: Harika Chadwick MD [Physician] - Jorge Villanueva DO [Primary Care Provider] - 02/06/19 10:55 am Diet: Heart Healthy Addtl Provider Instructions: DO NOT TAKE ASPIRIN WHILE HAVING BLOOD IN THE URINE. DRINK PLENTY OF FLUIDS. PLEASE CALL PRIMARY CARE PHYSICIAN OR DR. CHADWICK' OFFICE , OR RETURN TO THE ER IMMEDIATELY IF WITH RECURRENCE OR WORSENING OF SYMPTOMS. Prescriptions: New tramadol 50 mg Tablet 50 mg PO Q4H PRN (Reason: SEVERE PAIN) 7 Days Qty: 10 RF: 0 phenazopyridine [Pyridium] 100 mg tablet 100 mg PO TID PRN (Reason: pain) 7 Days Qty: 15 RF: 0 Continued atorvastatin 20 mg tablet 20 mg PO 2XWK RF: 0 losartan-hydrochlorothiazide 100-25 mg tablet 1 tab PO QAM RF: 0 sertraline 25 mg tablet 25 mg PO HS RF: 0 biotin 1 mg Tablet PO QAM RF: 0 Women's Multivitamin 18 mg iron-400 mcg-500 mg Tablet 1 tab PO QAM RF: 0 estradiol 0.0375 mg/24 hr patch semiweekly 1 patch topical 2XWK RF: 0 testosterone 5.5 mg/0.122 gram/actuation Gel In Metered-Dose Pump 1 pump INTRANASAL TID RF: 0 Discontinued aspirin 81 mg Tablet,Delayed Release (Dr/Ec) 81 mg PO QAM RF: 0 ibuprofen 200 mg Tablet 800 mg PO QAM RF: 0 nitrofurantoin monohyd/m-cryst 100 mg capsule 100 mg PO BID RF: 0 Stand-Alone Forms: [facility] Discharge Orders: Discharge Order (Routine); Ordered 01/30/19 Ordered By: Lisandro Barrientos Admission Data Admit Date/Time: 01/29/19 13:28 Attending Provider: Lisandro Barrientos Admit Provider: Nery Alba Primary Care Provider: Jorge Villanueva Other Providers: Nery Alba ; Harika Chadwick Service: Medical Other Interventions: Discharge Summary Assessment (RN) Last Done: 01/30/19 15:39
[2019-01-30] MEDS ORDERED: SERTRALINE HCL 50 MG TABLET PO SCH (21:00)
== END 2019-01-30 16:21 | disposition home or self-care (01) | DRG 661 ==
LOC: ED 08:52 → 3W 13:28

== ENCOUNTER 2019-05-10 04:46 | Inpatient (IN) ==
--- NOTE | 2019-05-04 09:14 | Anesthesiology Consultation ---
Date of Service May 04, 2019 Assessment & Plan (1) Encounter for pre-operative examination: Chart Review Chart Review: Acceptable Risk for Surgery and Patient seen in Pre Admission Testing Teaching & Discussion Instructed NPO after midnight before surgery, except medications with 15 cc of water. Medication instructions provided according to the PAT guidelines. History Surgery Operation Date: 05/10/19 11:40 Proposed Procedures p Left Total Hip Arthroplasty - Haresh Stanton MD Height/Weight Height: 5 ft 1 in Weight: 74.2 kg Allergies Allergy/AdvReac Type Severity Reaction Status Date / Time No Known Allergies Allergy Unknown Verified 05/02/19 10:34 Medications Home Medications Medication Instructions Recorded Confirmed Last Taken Women's Multivitamin 1 tab PO QAM 01/29/19 05/02/19 01/29/19 atorvastatin 20 mg PO WK 01/29/19 05/02/19 01/26/19 biotin 1 mg PO QAM 01/29/19 05/02/19 01/29/19 estradiol 1 patch TOPICAL 2XWK 01/29/19 05/02/19 01/25/19 losartan-hydrochlorothiazide 1 tab PO QAM 01/29/19 05/02/19 01/29/19 sertraline 25 mg PO HS 01/29/19 05/02/19 01/28/19 testosterone 1 pump INTRANASAL TID 01/29/19 05/02/19 01/28/19 Past Medical History Medical History Abnormal EKG 11/2018 [facility], had f/u stress WNL History of kidney stones Hyperlipidemia Hypertension Osteoarthritis Exercise / Class Metabolic Activity II 4-5 Yardwork/Stairs/Walk up hill (denies CP or SOB with stairs) Past Family History Family History Other Kidney stone Past Surgical History Surgical History H/O: hysterectomy H/O section History of colonoscopy History of right hip replacement History of total knee arthroplasty BOTH KNEES Hx of lithotripsy Past Anesthesia History No Hx of Anesthesia Complications and No Family Hx of Anesthesia Complications History of PONV No Hx of PONV and No Hx of Motion Sickness Social History Smoking Status: Never smoker Do You Dip or Chew Tobacco: No Hx Alcohol Use: Yes Alcohol type: wine alcohol intake frequency: 0-2 drinks per day Hx Substance Use: No Review of Systems Pt denies any recent chest pain, shortness of breath, palpitations, cough, fever or URI. Physical Exam Vital Signs BP: 124/80 P: 63bpm SPO2: 95% RA T: 98.7 F R: 12 ENMT Mouth: + dental restorations (several crowns) and + chipped teeth (few broken crowns); no loose teeth Thyromental Distance: > or= 3.5 Finger Breadths (4) Mallampati Class: II Neck normal visual inspection; neck extension not limited Respiratory normal respiratory effort Auscultation: lungs clear to auscultation bilaterally Cardiovascular Rate/Rhythm: regular rate and regular rhythm Heart Sounds: no murmur Extremities: no edema Testing Laboratory Results 05/04/19 09:22 05/04/19 09:22 PT 10.3 Seconds (9.0-12.0) 05/04/19 09: INR 1.0 (0.9-1.1) 05/04/19 09: APTT 25.4 Seconds (21.0-31.0) 05/04/19 09:22 Blood Type A Positive 05/04/19 09:22 Antibody Screen NEGATIVE 05/04/19 09:22 Electrocardiogram Date: 11/24/18 Findings: + NSR @ (65) ST and T wave abnormality, consider anterior ischemia. Compared with EKG of 09/14/2017, nonspecific T wave abnormality is evident in lateral leads and ST abnormalities more pronounced in the anterior leads. *pt had f/u stress echo 12/05 Chest X-Ray Date: 06/06/18 Right pericardiac nodule seen only on the frontal view. It is most likely overlapping shadows. Stress Test Date: 12/05/18 Type: nuclear Resting EF: >70% Myocardial perfusion imaging is normal. Overall left ventricular systolic function was normal without regional wall motion normalities.
--- NOTE | 2019-05-04 09:17 | PAT Medication Instructions ---
Medication Instructions Date of Service May 04, 2019 Home Medications Women's Multivitamin 1 tab PO QAM atorvastatin 20 mg PO WK biotin 1 mg PO QAM estradiol 1 patch TOPICAL 2XWK losartan-hydrochlorothiazide 1 tab PO QAM sertraline 25 mg PO HS testosterone 1 pump INTRANASAL TID Continue as directed atorvastatin 20 mg PO WK estradiol 1 patch TOPICAL 2XWK DO NOT take the morning of surgery Women's Multivitamin 1 tab PO QAM biotin 1 mg PO QAM losartan-hydrochlorothiazide 1 tab PO QAM Take evening before surgery sertraline 25 mg PO HS Other Notes If you have any questions please call us at [phone] or [phone] or [phone] or [phone]
[2019-05-04 10:21] LABS: Basophils # (auto) 0.04 K/uL (0-0.2); Basophils % (auto) 0.8 %; Hematocrit (blood only) 35.4 % (37-47); Hemoglobin 12.1 g/dL (12.0-16.0); Lymphocytes # (auto) 1.34 K/uL (1.2-3.4); Lymphocytes % (auto) 27.2 %; Mean Corpuscular Hgb Conc 34.2 g/dL (32-36); Mean Corpuscular Volume 84.9 fL (80-100); Mean Platelet Volume 9.8 fL (7.4-10.4); Monocytes # (auto) 0.38 K/uL (0.11-0.59); Monocytes % (auto) 7.7 %; Neutrophils # (auto) 3.07 K/uL (1.4-6.5); Neutrophils % (auto) 62.3 %; Platelet Count 186 K/uL (130-400); RDW Coefficient of Variation 13.3 % (11.5-14.5); RDW Standard Deviation 40.8 fL (36.4-46.3); Red Blood Count 4.17 M/uL (4.2-5.4); White Blood Count 4.93 K/uL (4.8-10.8)
[2019-05-04 10:28] LABS: BUN Creatinine Ratio 35.5 (10-20); Blood Urea Nitrogen 21 mg/dl (7-18); C Reactive Protein < 0.29 mg/dl (0-0.29); Calcium 8.7 mg/dl (8.5-10.1); Carbon Dioxide 26 mmol/L (21-32); Chloride 106 mmol/L (98-107); Creatinine Clr Calc Pharmacy 94.6 ml/min; Est GFR (African American) 116.3; Est GFR (Non-African American) 100.3; Glucose 103 mg/dl (70-99); Potassium 3.7 mmol/L (3.5-5.1); Sodium 136 mmol/L (136-145)
[2019-05-04 10:43] LABS: Partial Thromboplastin Ratio 0.9; Partial Thromboplastin Time 25.4 Seconds (21.0-31.0); Prothrombin Time 10.3 Seconds (9.0-12.0)
--- NOTE | 2019-05-05 09:50 | History and Physical Report ---
DATE OF ADMISSION: 05/10/2019 CHIEF COMPLAINT: Left hip pain. HISTORY OF PRESENT ILLNESS: A 58-year-old female who is well known to me from a previous right hip replacement as well as bilateral knee replacements in the past. Over the past year and a half, she has developed increased pain and discomfort in her left hip. It has gotten significantly worse over the past 4-5 months. No known injury. She describes groin pain and lateral thigh pain. She has nighttime discomfort and having difficulty sleeping. She cannot walk any distance and as a result of her inactivity has been gaining weight, which has been bothersome for her. The more she walks, the more it hurts. She has difficulty putting her shoes and socks on. She has done well from her other joints and would like to have her left hip replaced. PAST MEDICAL HISTORY: Significant for gastroesophageal reflux disease. PAST SURGICAL HISTORY: Includes: 1. Right hip replacement on 09/04/2012. 2. Bilateral knee replacements done on 09/20/2014. 3. Kidney stone surgery. 4. x3. 5. Hysterectomy. ALLERGIES: None. CURRENT MEDICINES: 1. Losartan. 2. Ritalin. 3. Hormone patch. 4. Statin. 5. Low-dose aspirin. SOCIAL HISTORY: A 58-year-old white female. She has 5 drinks of alcohol per week. Does not smoke. FAMILY HISTORY: Noncontributory. REVIEW OF HISTORY: Negative for diabetes, neurologic problems, vascular problems or bleeding disorders. She has no chest pain or shortness of breath. No history of DVT or PE. No known bleeding problems. PHYSICAL EXAMINATION: GENERAL: Reveals a pleasant middle-aged female, looks to be in excellent health. HEENT: Benign. NECK: Supple. No lymphadenopathy. LUNGS: Clear to auscultation. HEART: Regular rate and rhythm. ABDOMEN: Soft, nontender, nondistended. EXTREMITIES: Grossly neurovascularly intact except as follows: Examination of the left leg reveals patient walks with a slightly antalgic gait. She is about a 0.5 cm short on the left side compared to the right. She does have significant pain with any type of hip motion, particularly internal rotation. She can internally rotate to about 5-10 degrees and external rotation to 25 degrees. She has pain with this. Negative straight leg raise. No knee effusion. X-RAYS: X-rays of the left hip were reviewed. It shows progressive arthritis in her left hip compared to previous films. She still got some joint space remaining, but has progressed over the past year significantly. Not a lot of osteophyte formation, just joint space narrowing. ASSESSMENT: A 58-year-old white female status post right hip replacement and bilateral knee replacements with progressive left hip arthritis that has gotten significantly worse over the past 4-5 months. X-rays show progressive disease. She would like to have her hip fixed. She is having difficulty sleeping and doing any significant activities. PLAN: We will take her to the operating room and do a left total hip replacement. The risks and benefits of these procedures were explained to the patient including but not limited to DVT, PE, , infection, neurological injury, vascular injury, bleeding problem, pain, limited range of motion, stiffness, failure to relieve symptoms, incomplete relief of symptoms, need for further surgery in the future, fracture, leg length inequality, nerve palsy, dislocation, need for revision surgery, etc. The patient understands and desires to proceed. Informed consent was obtained. She did have preoperative workup and labs, all look pretty good. Her EKG was a bit abnormal but she did have a negative stress test in November of this year at [facility]. As far as therapy, she is planning to do an outpatient therapy and does not want home health.
[2019-05-10] MEDS ORDERED: CEFAZOLIN 2000MG 2,000 MG/15 ML SYR IV SCH (06:00)
[2019-05-10] MEDS ORDERED: FAMOTIDINE 20 MG TAB PO SCH (06:00)
[2019-05-10] MEDS ORDERED: ACETAMINOPHEN 500 MG TAB PO SCH (06:00)
[2019-05-10] MEDS ORDERED: SCOPOLAMINE 1.5 MG TDSY TD SCH (06:00)
[2019-05-10] MEDS ORDERED: LR 60ML/HR IV SCH (06:00)
[2019-05-10] MEDS ORDERED: TRANEXAMIC ACID 1,000 MG **IV Pre-op IV SCH (06:00)
[2019-05-10] MEDS ORDERED: METOCLOPRAMIDE HCL 10 MG TABLET PO SCH (06:00)
[2019-05-10] MEDS ORDERED: GABAPENTIN 300 MG x 2 PO SCH (06:00)
[2019-05-10] MEDS ORDERED: LR 500ML BOLUS, THEN 15ML/HR IV SCH (06:00)
[2019-05-10] MEDS ORDERED: BUPIVACAINE 0.5 % 5 MG/1 ML PF 10ML VIAL ONE (06:27)
[2019-05-10] MEDS ORDERED: MIDAZOLAM HCL 1 MG/ML 2ML VIAL ONE (06:35)
[2019-05-10] MEDS ORDERED: fentaNYL citrate 100 MCG/2 ML VIAL ONE (06:35)
[2019-05-10] MEDS ORDERED: MoRPHine SULFATE PF 1 MG/ML 10 ML AMP/VIAL ONE ×2 (06:36)
[2019-05-10] MEDS ORDERED: NALOXONE HCL 1 MG in SODIUM CHLORIDE 0.9% 1000ML 1,000 ML IV PRN (06:50)
[2019-05-10] MEDS ORDERED: DiphenhydrAMINE HCL 50 MG/ML VIAL IV PRN (06:50)
[2019-05-10] MEDS ORDERED: LACTATED RINGER'S 500 ML IV PRN (06:50)
[2019-05-10] MEDS ORDERED: ONDANSETRON INJ 2 MG/ML 2 ML VIAL IV PRN (06:50)
[2019-05-10] MEDS ORDERED: MEPERIDINE HCL 25 MG/ML CARP IV PRN (06:50)
[2019-05-10] MEDS ORDERED: NALBUPHINE HCL INJ 10 MG/ML AMP IV PRN (06:50)
[2019-05-10] MEDS ORDERED: NALOXONE HCL 0.4 MG/1 ML VIAL/CARP IV PRN ×2 (06:50→09:37)
[2019-05-10] MEDS ORDERED: ePHEDrine sulfate 50 MG/ML AMP IV PRN (06:50)
[2019-05-10] MEDS ORDERED: NALOXONE HCL 0.08 MG in SYRINGE 1.8 ML IV PRN (06:50)
[2019-05-10] MEDS ORDERED: MoRPHine SULFATE PF 1 MG/ML 10 ML AMP/VIAL INT SPINAL ONE (06:50)
--- NOTE | 2019-05-10 06:52 | History & Physical Bridge Note ---
Date of Service May 10, 2019 History & Physical Bridge Note I have examined the patient, reviewed the History & Physical and in the interval since the performance of the History & Physical I have noted the following changes of clinical significance: no changes noted
[2019-05-10] MEDS ORDERED: BUPIVACAINE/EPINEPHRINE 0.5% MPF 1:200,000 30 ML VIAL ONE (06:56)
[2019-05-10] MEDS ORDERED: BACITRACIN INJ 50,000 UNIT VIAL ONE (06:57)
[2019-05-10] MEDS ORDERED: SODIUM CHLORIDE 0.9% 1000ML 1,000 ML IV SCH (07:00)
[2019-05-10] MEDS ORDERED: NO NARCOTICS OR SEDATIVES SCH (07:00)
[2019-05-10] MEDS ORDERED: DC INTRASPINAL MORPHINE SCH (07:00)
--- NOTE | 2019-05-10 08:48 | Post Operative Brief Note ---
Immediate Post Op Note v1 Date of Surgery May 10, 2019 Pre & Post Diagnosis Operation Date: 05/10/19 07:15 Pre-Op Diagnosis: Left Hip Degenerative Disease Post-Op Diagnosis: Left Hip Degenerative Disease Procedure Operation Date: 05/10/19 07:15 Actual Procedures p Left Total Hip Arthroplasty--Uncemented with Application of Femoral Stabilization Cable(Left) - Haresh Stanton MD Surgeon Haresh Stanton MD [place], PAC Estimated Blood Loss 200 Findings Consistent with Post-Op Diagnosis Fluids 1800 cc Specimens Left Femoral Head Drains Diaz Catheter (A 16 [place] diaz catheter was inserted by JIMMY Salgado, without difficulty, clear yellow urine obtained, output to be monitored by Anesthesia.) Anesthesia Type Spinal MAC Complications Calcar Fracture treated with Julio-Miles Cable. Disposition Accompanied Patient To Recovery: Yes Disposition: Recovery Room
--- NOTE | 2019-05-10 09:11 | Anesthesiology Progress Note ---
Date of Service May 10, 2019 Anesthesia Post Procedure Vital Signs Vital Signs: Temp Pulse Pulse Resp BP Pulse Ox 05/10/19 08:55 75 18 100/58 L 97 05/10/19 08:47 96.8 F L 86 16 85/54 L 98 05/10/19 05:19 98.4 F 74 20 142/95 H 98 Transfer of Care Handoff Completed per policy Notes Mental Status: alert / awake / arousable and participated in evaluation Patient Amnestic to Procedure: Yes Nausea / Vomiting: adequately controlled Pain: adequately controlled Airway Patency, RR, SpO2: stable & adequate BP & HR: stable & adequate Hydration State: stable & adequate Neuraxial Anesthesia: was administered and sensory block is resolving Anesthetic Complications: no major complications apparent and Pt Satisfied with anesthetic care
--- NOTE | 2019-05-10 09:14 | XRay Report ---
XR hip 1V LT w pelvis CLINICAL HISTORY: IN PACU - A/P PELVIS and LATERAL HIP COMPARISON: None. DISCUSSION: Total left hip arthroplasty. Good contact between the prosthetic and underlying bone. The re is a circumferential wire around the proximal femur. There is pre-existing total right hip arthroplasty. Expected postoperative soft tissue change IMPRESSION: Anatomic alignment posttotal left hip arthroplasty. The above report was generated using voice recognition software. It may contain grammatical, syntax or spelling errors. Electronically signed by: Abel Thompson M.D. 05/10/2019 9:13 AM
[2019-05-10] MEDS ORDERED: ALUMINUM/MAGNESIUM SUSP 30 ML UDC PO PRN (09:37)
[2019-05-10] MEDS ORDERED: MAGNESIUM HYDROXIDE SUSP 30 ML UDC PO PRN (09:37)
[2019-05-10] MEDS ORDERED: BISACODYL 10 MG SUPP PR PRN (09:37)
[2019-05-10] MEDS ORDERED: NON-FORMULARY MEDICATION (Biotin 1 MG) PO SCH (09:37)
[2019-05-10] MEDS ORDERED: [UNRECOGNIZED DRUG - OTHER] PO SCH (09:37)
[2019-05-10] MEDS: SODIUM CHLORIDE 0.9% 1000ML 1,000 ML IV SCH (10:36)
[2019-05-10] MEDS: DOCUSATE SODIUM 100 MG CAP PO SCH ×2 (10:37→20:43)
[2019-05-10] MEDS: MULTIVITAMIN TAB PO SCH (10:37)
[2019-05-10] MEDS: ASPIRIN 81 MG ECTAB PO SCH ×2 (10:37→20:43)
[2019-05-10] MEDS: LOSARTAN/HCTZ 50/12.5MG TAB PO SCH (10:37)
[2019-05-10] MEDS ORDERED: PROPOFOL IV EMULSION 10 MG/ML 20 ML VIAL IV ONE (11:14)
--- NOTE | 2019-05-10 11:21 | Operative Report ---
DATE OF OPERATION: 05/10/2019 SURGEON: Haresh Stanotn MD BEHAVIORAL HEALTH THERAPIST: JIMMY Brandt PREOPERATIVE DIAGNOSIS: Left hip degenerative joint disease. POSTOPERATIVE DIAGNOSIS: Left hip degenerative joint disease. PROCEDURE PERFORMED: Left uncemented ceramic on highly cross-linked polyethylene total hip arthroplasty. COMPLICATIONS: Medial calcar fracture treated with a Dall-Miles cerclage cable. ESTIMATED BLOOD LOSS: 200 mL. FLUID REPLACEMENT: 1800 mL crystalloid fluid replacement. ANESTHESIA: Spinal. DRAINS: None. SPECIMENS: Left femoral head sent for pathology. OPERATIVE INDICATIONS: The patient is a 58-year-old female who has had a history of multiple joint replacements in the past. Over the past year and a half, she has developed increased pain and discomfort in her left hip that has gotten significantly worse over the past 6 months. X-rays showed progressive hip arthritis. It was not severe, but showed significant progression in the last 6 months. She is having trouble walking with any significant distance and was having nighttime pain. She failed all conservative care and elected to proceed with operative treatment. OPERATIVE IMPLANTS: Operative implants consisted of: 1. A Biomet G7 size 46 mm acetabular shell. 2. 6.5 cancellous acetabular screws, 1 at 35 mm in length and 1 at 20 mm in length. 3. An apex hole eliminator. 4. A highly cross-linked polyethylene liner with a 46 mm outer diameter and 28 mm inner diameter. 5. A [employer] size 8 standard femoral stem. 6. A +1.5/28 mm ceramic articular ball. 7. Dall Miles Cable X 1 OPERATIVE PROCEDURE: The patient was taken to the operating room, identified and placed on the operating table in supine position. All contact areas were appropriately padded. IV antibiotics provided by anesthesia team. A spinal anesthetic had been implemented in the holding area. Irving catheter was placed in sterile fashion. The patient was then placed in the right lateral decubitus position. An axillary roll was placed. Stlberg hip positioner was used for positioning. Left hip and leg were then prepped and draped in usual sterile fashion. A posterolateral approach to the left hip was then performed through a curvilinear incision centered over the greater trochanter. Sharp dissection was carried out through the subcutaneous tissues down to the level of the IT band and gluteal fascia. The IT band and gluteal fascia were incised longitudinally in line with skin incision. The underlying greater trochanteric bursa was excised. The piriformis and external rotators were tagged and taken off the posterior aspect of the hip joint capsule. Great care was taken throughout the procedure to protect the sciatic nerve at all times. Posterior capsulotomy was then performed leaving a large flap for later repair. Hip was internally rotated and dislocated. Femoral neck osteotomy cut was made with the final cut about 10 mm above the lesser trochanter. Femoral head was removed and sent for pathology. The femur was retracted anteriorly. Attention was then drawn to the acetabulum. The acetabular labrum was excised. The pulvinar fat was excised. Sequential reaming of the acetabulum was then performed beginning with size 43 and progressing up to 45. A 46 mm Biomet G7 acetabular shell was then placed in about 40 degrees of lateral opening and 25 degrees of anteversion. I did put a little more anteversion in her cup due to her tendency to do a lot of bending activities, particularly with her sports car. The acetabulum was fixed with two 6.5 cancellous acetabular screws. A trial liner was placed. Attention was then drawn to the femur. The proximal femur was entered with a cookie cutter followed by canal finder. I broached with an 8 broach. Upon seating the broach, there was clearly a medial calcar fracture. We placed a Dall-Miles cerclage cable just above the lesser trochanter to prevent propagation of this. I considered options. Femur was fairly small and with this fracture, I really did not want to ream, extensively to place a diaphyseal fitting stem. We checked other stem diameters and I felt this was the most appropriate stem to use. I felt the [place] stem which was another option was a little bit bigger and it would more likely to create problems. We elected to place the stem. We trialed the hip. Considering everything, I could not place the KLA stem as I could not get big to the next size which was required, therefore I elected to place the standard offset stem and I used a +1.5 head. The hip was located and found to be stable in all positions. We elected to place these implants. All trial implants were removed. An apex hole eliminator was placed. A highly cross-linked polyethylene liner was placed. A [employer] size 8 standard offset femoral stem was impacted in position. There were no signs of fracture propagation. A +1.5/36 mm ceramic articular ball was placed. Hip was located and once again found to be stable. Attention was then drawn toward closing. The wound was irrigated with copious amounts of pulsatile lavage solution. I injected locally with 60 mL of 0.5% Marcaine with epinephrine. The posterior capsule and external rotators were repaired through drills and the posterior trochanter with #2 Ti-Cron suture. The IT band and gluteal fascia were then closed with #1 PDS suture in running fashion. Subcutaneous tissues were then closed with 2 layers, the deep layer with #1 Vicryl suture and subcutaneous tissue with 2-0 Dexon suture in a buried interrupted fashion. Skin was closed with skin ashley. Leg was then cleaned, dried and a sterile dressing of Xeroform, 4 x 4, sterile ABD pad and foam tape was applied. The patient then transferred to the recovery room in stable condition. The patient tolerated the procedure well with no complications. All needle and sponge counts were correct at the end of the operation. I attest to the content of the Intraoperative Record and any orders documented therein. Any exceptions are noted below. LESLEY
[2019-05-10] MEDS ORDERED: PHENYLEPHRINE HCL 10 MG/ML VIAL ONE (11:41)
[2019-05-10] MEDS: KETOROLAC 30 MG/ML VIAL IV SCH ×2 (12:10→17:45)
[2019-05-10] MEDS: CEFAZOLIN 1000MG 1,000 MG/7.5 ML SYR IV SCH ×2 (13:36→21:54)
[2019-05-10] MEDS: ACETAMINOPHEN 500 MG TAB PO SCH ×2 (13:36→21:52)
[2019-05-10] MEDS ORDERED: TRANEXAMIC ACID 1,000 MG in 0.9 % SODIUM CHLORIDE 100 ML IV SCH (15:00)
[2019-05-10] MEDS: CHECK SCOPOLAMINE PATCH PLACEMENT SCH (15:40)
[2019-05-10] MEDS: ASCORBIC ACID 500 MG TAB PO SCH (17:45)
[2019-05-10] MEDS: FERROUS GLUCONATE 324 MG TAB PO SCH (17:45)
--- NOTE | 2019-05-10 20:04 | Progress Note ---
DATE: 05/10/2019 SUBJECTIVE: A 58-year-old white female postop from a left hip replacement. This was complicated by calcar fracture treated with a cerclage cable. She is doing well. Pain is controlled. No chest pain, no shortness of breath. Not feeling dizzy or lightheaded. OBJECTIVE: VITAL SIGNS: Temperature is 36.6. Vital signs stable. GENERAL: Reveals a pleasant, middle-aged female. She is lying in bed and talking to her significant other. She looks pretty comfortable. LUNGS: Clear to auscultation. HEART: Regular rate and rhythm. ABDOMEN: Soft, nontender, nondistended. EXTREMITIES: Grossly neurovascularly intact except as follows: Examination of the left lower extremity reveals the leg lengths to be equal. Dressing is clean, dry and intact. Thigh is soft and supple. Hip is located. She is neurologically intact. She can dorsiflex and plantarflex her foot appropriately. X-RAYS: X-rays of the left hip from recovery room were reviewed. She has a left uncemented total hip arthroplasty. The components looked to be in good position. No signs of problems. I cannot visualize any fracture. ASSESSMENT: A 58-year-old white female postop from a left total hip replacement complicated by a calcar fracture, doing well. Pain is controlled. Hip is located. She is neurologically intact. PLAN: 1. DVT prophylaxis including thigh-high TEDs, SCDs, and aspirin twice a day. 2. PT/OT. We are going to keep her touch weightbearing for the first 2-4 weeks and see how she is doing at that time. 3. Pain control, doing well with current pain regimen. 4. IV antibiotics x24 hours. 5. Disposition: Plan to discharge to home and she is going to do maybe some outpatient therapy but I am not sure she will really need much therapy other than just gait training. We will see how she does in the hospital.
[2019-05-10] MEDS: MICONAZOLE NITRATE POWDER 43 GM EXT SCH (20:43)
[2019-05-10] MEDS: SERTRALINE HCL 50 MG TABLET PO SCH (20:43)
[2019-05-10] MEDS: SENNA 8.6 MG TAB PO SCH (20:44)
[2019-05-11] MEDS ORDERED: METOCLOPRAMIDE HCL INJ 5 MG/ML 2 ML VIAL IV PRN (00:50)
[2019-05-11] MEDS ORDERED: OXYCODONE HCL IR 5 MG TAB (IMMEDIATE RELEASE) PO PRN (00:50)
[2019-05-11] MEDS: KETOROLAC 30 MG/ML VIAL IV SCH ×4 (05:05→18:36)
[2019-05-11] MEDS: ACETAMINOPHEN 500 MG TAB PO SCH ×3 (05:06→22:03)
[2019-05-11 06:49] LABS: Basophils # (auto) 0.02 K/uL (0-0.2); Basophils % (auto) 0.2 %; Eosinophils # (auto) 0.05 K/uL (0-0.5); Eosinophils % (auto) 0.6 %; Hematocrit (blood only) 31.1 % (37-47); Hemoglobin 10.5 g/dL (12.0-16.0); Immature Granulocytes # (auto) 0.01 K/uL (0.00-0.02); Immature Granulocytes % (auto) 0.1 %; Lymphocytes # (auto) 0.91 K/uL (1.2-3.4); Lymphocytes % (auto) 10.3 %; Mean Corpuscular Hgb Conc 33.8 g/dL (32-36); Mean Corpuscular Volume 85.7 fL (80-100); Mean Platelet Volume 9.4 fL (7.4-10.4); Monocytes # (auto) 0.59 K/uL (0.11-0.59); Monocytes % (auto) 6.7 %; Neutrophils # (auto) 7.22 K/uL (1.4-6.5); Neutrophils % (auto) 82.1 %; Platelet Count 157 K/uL (130-400); RDW Coefficient of Variation 13.5 % (11.5-14.5); RDW Standard Deviation 42.1 fL (36.4-46.3); Red Blood Count 3.63 M/uL (4.2-5.4)
[2019-05-11] MEDS: SODIUM CHLORIDE 0.9% 1000ML 1,000 ML IV SCH (07:06)
[2019-05-11 07:14] LABS: BUN Creatinine Ratio 25.4 (10-20); Calcium 8.5 mg/dl (8.5-10.1); Creatinine Clr Calc Pharmacy 85.2 ml/min; Est GFR (African American) 112.1; Est GFR (Non-African American) 96.7; Potassium 3.5 mmol/L (3.5-5.1)
[2019-05-11] MEDS: CHECK SCOPOLAMINE PATCH PLACEMENT SCH ×3 (08:05→15:50)
[2019-05-11] MEDS: FERROUS GLUCONATE 324 MG TAB PO SCH ×2 (08:05→18:36)
[2019-05-11] MEDS: MULTIVITAMIN TAB PO SCH (08:05)
[2019-05-11] MEDS: ASPIRIN 81 MG ECTAB PO SCH ×2 (08:06→22:00)
[2019-05-11] MEDS: DOCUSATE SODIUM 100 MG CAP PO SCH ×2 (08:06→22:02)
[2019-05-11] MEDS: LOSARTAN/HCTZ 50/12.5MG TAB PO SCH (08:06)
[2019-05-11] MEDS: TAPENTADOL HCL ER 50 MG TABCR PO SCH ×2 (08:06→21:59)
[2019-05-11] MEDS: ASCORBIC ACID 500 MG TAB PO SCH ×2 (08:07→18:36)
[2019-05-11] MEDS: MICONAZOLE NITRATE POWDER 43 GM EXT SCH ×2 (08:07→22:02)
--- NOTE | 2019-05-11 08:12 | Progress Note ---
DATE: 05/11/2019 SUBJECTIVE: A 58-year-old white female postop day 1 from left total hip replacement complicated by a calcar fracture. She is doing pretty well. A little bit sore but manageable. No chest pain or shortness of breath. Not feeling dizzy or lightheaded. OBJECTIVE: VITAL SIGNS: Temperature 37.3. Vital signs stable. GENERAL: Physical examination shows a pleasant, middle-aged female. She is lying in bed, looks completely comfortable. EXTREMITIES: Examination of the left leg reveals leg lengths to be equal. Dressing clean, dry and intact. Thigh is soft and supple. Minimal swelling. She is neurologically intact. LABORATORY DATA: Hemoglobin is 10.5, hematocrit 31.1. Electrolytes are stable. ASSESSMENT: A 58-year-old white female postop day 1 from left total hip replacement complicated by calcar fracture, treated with a cerclage cable. She is doing pretty well. Pain is reasonably well controlled. Hip is located. PLAN: 1. DVT prophylaxis including thigh-high TEDs, SCDs, and aspirin twice a day. 2. PT/OT. We are going to go touch weightbearing for the first 6 weeks probably. I did discuss this calcar fracture with her in depth last evening on rounds as well as this morning again. This should not affect the overall result of her hip replacement and just to be cautious, I think it is appropriate to keep her touch weightbearing for the next several weeks to 6 weeks. We will check an x-ray in 2 weeks. She was fully understanding of this issue. 3. Pain control, doing pretty well with current pain regimen. 4. Disposition: She is planning to be discharged to home. I do not think she initially needs home health for therapy at this point. Just needs some mobilization and some assistance with mobilization. We will see how therapy goes today.
[2019-05-11] MEDS ORDERED: ATORVASTATIN 20 MG TAB PO SCH (09:00)
[2019-05-11] MEDS: ONDANSETRON INJ 2 MG/ML 2 ML VIAL IV PRN ×2 (09:07→20:12)
--- NOTE | 2019-05-11 10:44 | Anesthesiology Progress Note ---
Date of Service May 11, 2019 Anesthesia Post Procedure Vital Signs Vital Signs: Temp Pulse Resp BP Pulse Ox 05/11/19 07:19 37.3 C 78 16 118/76 92 05/11/19 03:17 37.4 C 81 16 102/66 94 05/11/19 00:30 16 92 05/10/19 23:30 16 91 05/10/19 23:07 36.9 C 77 14 99/65 L 96 05/10/19 22:30 16 96 05/10/19 21:30 16 97 05/10/19 20:30 18 96 05/10/19 19:29 75 16 94/59 L 05/10/19 19:28 16 94 05/10/19 19:06 37.2 C 82 16 86/53 L 92 05/10/19 18:29 16 95 05/10/19 17:29 16 98 05/10/19 16:30 16 95 05/10/19 15:59 36.6 C 73 16 103/70 98 05/10/19 15:30 84 18 96 05/10/19 14:30 16 94 05/10/19 13:30 18 96 05/10/19 12:30 16 95 05/10/19 12:27 36.3 C L 69 20 106/72 94 05/10/19 11:30 18 98 05/10/19 11:16 36.5 C 67 18 100/68 99 Notes Mental Status: alert / awake / arousable and participated in evaluation Patient Amnestic to Procedure: Yes Nausea / Vomiting: adequately controlled Pain: adequately controlled Airway Patency, RR, SpO2: stable & adequate BP & HR: stable & adequate Hydration State: stable & adequate Anesthetic Complications: no major complications apparent and Pt Satisfied with anesthetic care
[2019-05-11] MEDS: HYDROmorphone INJ 0.5 MG/0.5 ML SYR IV PRN ×2 (15:39→22:04)
[2019-05-11] MEDS: SENNA 8.6 MG TAB PO SCH (22:00)
[2019-05-11] MEDS: SERTRALINE HCL 50 MG TABLET PO SCH (22:01)
[2019-05-12] MEDS: CHECK SCOPOLAMINE PATCH PLACEMENT SCH ×2 (00:58→08:06)
[2019-05-12] MEDS: KETOROLAC 30 MG/ML VIAL IV SCH ×2 (00:58→05:02)
[2019-05-12] MEDS: ACETAMINOPHEN 500 MG TAB PO SCH (05:02)
[2019-05-12] MEDS: FERROUS GLUCONATE 324 MG TAB PO SCH (07:10)
[2019-05-12] MEDS: ASPIRIN 81 MG ECTAB PO SCH (08:05)
[2019-05-12] MEDS: MICONAZOLE NITRATE POWDER 43 GM EXT SCH (08:05)
[2019-05-12] MEDS: DOCUSATE SODIUM 100 MG CAP PO SCH (08:05)
[2019-05-12] MEDS: LOSARTAN/HCTZ 50/12.5MG TAB PO SCH (08:05)
[2019-05-12] MEDS: ASCORBIC ACID 500 MG TAB PO SCH (08:05)
[2019-05-12] MEDS: MULTIVITAMIN TAB PO SCH (08:05)
[2019-05-12] MEDS: TAPENTADOL HCL ER 50 MG TABCR PO SCH (08:09)
[2019-05-12] MEDS ORDERED: TRAMADOL HCL 50 MG TABLET PO PRN (08:15)
--- NOTE | 2019-05-12 08:49 | Progress Note ---
DATE: 05/12/2019 SUBJECTIVE: A 58-year-old white female postop day 2 from a left total hip replacement. She is doing well. She is getting around well. Pain is controlled. No chest pain or shortness of breath. Not feeling dizzy or lightheaded. OBJECTIVE: VITAL SIGNS: Temperature 37.6. Vital signs stable. GENERAL: Physical examination shows a pleasant middle-aged female. She is sitting up in her bed and watching TV this morning. Looks comfortable. EXTREMITIES: Examination of the left hip reveals leg lengths were equal. Incision is clean, dry and intact. Minimal swelling. No drainage. Thigh is soft and supple. She is neurologically intact. ASSESSMENT: A 58-year-old white female postop day 2 from left total hip replacement complicated by calcar fracture, treated with cerclage cabling. She is doing well. PLAN: 1. DVT prophylaxis including thigh-high TEDs and aspirin twice a day. 2. PT/OT. Touch weightbearing for the next 4-6 weeks. 3. Pain control, doing well with current pain regimen. She is requested to be sent home on no narcotics. Will use Tylenol and then just tramadol if needed. 4. Disposition: Plan to discharge to home likely with some home health.
--- NOTE | 2019-05-17 00:51 | Discharge Summary ---
DATE OF ADMISSION: 05/10/2019 DATE OF DISCHARGE: 05/12/2019 ADMITTING PHYSICIAN AND SURGEON: Haresh Stanton MD ADMITTING DIAGNOSIS: Left hip degenerative joint disease. SURGERY PERFORMED: Left total hip arthroplasty. SECONDARY DIAGNOSIS: Gastroesophageal reflux disease. CONSULTS: None obtained. HISTORY AND PHYSICAL EXAMINATION: Well documented in the patient's chart. HOSPITAL COURSE: The patient was admitted on 05/10/2019, underwent total hip arthroplasty, she tolerated the procedure well. She did have intraoperative calcar fracture which was treated with Dall-Miles cerclage cable. There were no other complications during the procedure. She was transferred to the PACU postoperatively and later to the orthopedic floor for further care. She was given Ancef for antibiotic prophylaxis, JOBY stockings, SCDs and aspirin for DVT prophylaxis. Hemoglobin, hematocrit and vital signs were monitored during hospital stay and remained stable. She did not require any blood transfusions. By postoperative day #2, she was tolerating a regular diet, pain was controlled with oral pain medicine. She was participating in physical therapy. On postoperative day #2, she was discharged home, set up with home health services. She was given printed discharge instructions including instructions to maintain toe touch weightbearing on the left lower extremity, ____ total hip precautions. She was also given new prescription for Extra Strength Tylenol, aspirin, iron supplement, Zofran, and tramadol. Continue her home medications, continue physical therapy, touch weightbearing of the left lower extremity, total hip precautions, JOBY stockings. Follow up approximately in 2 weeks or sooner if there are any problems or concerns.
== END 2019-05-12 09:30 | disposition home health service (06) | DRG 470 ==
LOC: ASU 04:46 → 3E 08:54